=== PATIENT | male | born 1960 | race Caucasian/White ===

== ENCOUNTER 2017-08-24 10:50 | Inpatient (IN) | payer SELFPAY ==
[2017-08-24] VITALS (15 sets, daily range): BP systolic 97–120; BP diastolic 56–78
[~2017-08-24] VITALS: Ht 177.8 cm; Wt 68.7 kg
[~2017-08-24 10:50] MED LIST: ALPR2TAB2; CLON1TAB3; CLON1TAB3 PO; CLON2TAB16; DULO60CA6; LORA2TAB; LOVA10TA; POLI10TA; QUET50TA PO
--- OUTSIDE RECORDS SUMMARY | 2017-08-24 10:56 | XMS REPORT ---
Author Author RONAK FLETCHER Organization [facility] Address [address] [place] [address] Care Team Providers Care Dice Manager Name Role Phone RONAK FLETCHER Unavailable PROBLEMS Type Condition ICD9-CM Code [id number] Code Onset Dates Condition Status SNOMED Code Problem Severe episode of recurrent major depressive disorder, without psychotic features F33.2 Active 16634580 Problem Anxiety F41.9 Active 93623517 Problem Moderate recurrent major depression F33.1 Active 984291748 Problem Substance abuse F19.10 Active 70172240 Problem Substance addiction F19.20 Active 473016189 Problem Opioid type dependence, unspecified F11.20 Active 30105756 Problem Sedative, hypnotic or anxiolytic dependence F13.20 Active 119990178 ALLERGIES No Known Allergies SOCIAL HISTORY Never Assessed PLAN OF CARE Activity Details Follow Up we will call Reason: VITAL SIGNS Height 71.0 in 2017-02-04 Weight 153.9 lbs 2017-02-04 Temperature 97.9 degrees Fahrenheit 2017-02-04 Heart Rate 92 bpm 2017-02-04 Respiratory Rate 18 2017-02-04 BMI 21.46 kg/m2 2017-02-04 Blood pressure systolic 116 mmHg 2017-02-04 Blood pressure diastolic 74 mmHg 2017-02-04 MEDICATIONS Medication Instructions Dosage Frequency Start Date End Date Duration Status Remeron 15 mg Orally Once a day 1 tablet at bedtime 24h January, 30 day(s) Active RESULTS No Results PROCEDURES No Known procedures IMMUNIZATIONS No Known Immunizations MEDICAL (GENERAL) HISTORY Type Description Date Medical History Alcoholism Medical History Opioid Dependence Medical History Benzo Dependence Medical History Anxiety Medical History Depression Surgical History Tonsilectomy Hospitalization History Rehab for Alcoholism [facility] [place] 2008 Hospitalization History Rehab for Alcoholism [facility] 1988 Hospitalization History [facility] 07/2016
--- OUTSIDE RECORDS SUMMARY | 2017-08-24 10:56 | XMS REPORT ---
Author Author LILIA Lares Organization [facility] Address [address] [place] [address] Care Team Providers Care Athletic Coach Name Role Phone LILIA Lares Unavailable PROBLEMS Type Condition ICD9-CM Code [id number] Code Onset Dates Condition Status SNOMED Code Problem Severe episode of recurrent major depressive disorder, without psychotic features F33.2 Active 10169051 Problem Anxiety F41.9 Active 95194415 Problem Moderate recurrent major depression F33.1 Active 695375710 Problem Substance abuse F19.10 Active 43214658 Problem Substance addiction F19.20 Active 167117061 Problem Opioid type dependence, unspecified F11.20 Active 58617740 Problem Sedative, hypnotic or anxiolytic dependence F13.20 Active 521724821 ALLERGIES No Information SOCIAL HISTORY Never Assessed PLAN OF CARE VITAL SIGNS MEDICATIONS Unknown Medications RESULTS No Results PROCEDURES No Known procedures IMMUNIZATIONS No Known Immunizations MEDICAL (GENERAL) HISTORY Type Description Date Medical History Alcoholism Medical History Opioid Dependence Medical History Benzo Dependence Medical History Anxiety Medical History Depression Surgical History Tonsilectomy Hospital[facility] [place] [facility] Hospitalization History Rehab for Alcoholism [facility] 1988 Hospitalization History [facility] 07/2016
--- OUTSIDE RECORDS SUMMARY | 2017-08-24 10:56 | XMS REPORT ---
Author Author ESTEFANIA AMES Organization [facility] Address [address] [place] [address] Care Team Providers Care Melt Down Furnace Operator Name Role Phone ESTEFANIA AMES Unavailable PROBLEMS Type Condition ICD9-CM Code [id number] Code Onset Dates Condition Status SNOMED Code Problem Severe episode of recurrent major depressive disorder, without psychotic features F33.2 Active 48169103 Problem Anxiety F41.9 Active 86249817 Problem Moderate recurrent major depression F33.1 Active 335323094 Problem Substance abuse F19.10 Active 24420772 Problem Substance addiction F19.20 Active 761138552 Problem Opioid type dependence, unspecified F11.20 Active 86465688 Problem Sedative, hypnotic or anxiolytic dependence F13.20 Active [id number] ALLERGIES No Information SOCIAL HISTORY Never Assessed PLAN OF CARE Activity Details Follow Up 3 Weeks Reason:Depression, substance abuse VITAL SIGNS MEDICATIONS Unknown Medications RESULTS No Results PROCEDURES Procedure Date Ordered Result Body Site Psych diagnostic evaluation, new patient January 21, 2017 IMMUNIZATIONS No Known Immunizations MEDICAL (GENERAL) HISTORY Type Description Date Medical History Alcoholism Medical History Opioid Dependence Medical History Benzo Dependence Medical History Anxiety Medical History Depression Surgical History Tonsilectomy Hospitalization History Rehab for Alcoholism [facility] 2008 Hospitalization History Rehab for Alcoholism [facility] 1988 Hospitalization History [facility] 07/2016
--- OUTSIDE RECORDS SUMMARY | 2017-08-24 10:56 | XMS REPORT ---
Author Author CarmelitaJULIANA RUVALCABA Organization [facility] Address [address] [place] [address] Care Team Providers Care Production Analyst Name Role Phone JULIANA Duong Unavailable PROBLEMS Type Condition ICD9-CM Code [id number] Code Onset Dates Condition Status SNOMED Code Problem Severe episode of recurrent major depressive disorder, without psychotic features F33.2 Active 14552139 Problem Anxiety F41.9 Active 79214523 Problem Moderate recurrent major depression F33.1 Active 365279998 Problem Substance abuse F19.10 Active 76313825 Problem Substance addiction F19.20 Active 094564854 Problem Opioid type dependence, unspecified F11.20 Active 15777331 Problem Sedative, hypnotic or anxiolytic dependence F13.20 Active 079177950 ALLERGIES No Known Allergies SOCIAL HISTORY Never Assessed PLAN OF CARE Activity Details Follow Up Client declined f/u. Clinic available if changes mind. Reason: VITAL SIGNS Height 71.0 in 2017-01-30 Weight 154.0 lbs 2017-01-30 Heart Rate 88 bpm 2017-01-30 Respiratory Rate 18 2017-01-30 BMI 21.48 kg/m2 2017-01-30 Blood pressure systolic 95 mmHg 2017-01-30 Blood pressure diastolic 76 mmHg 2017-01-30 MEDICATIONS Unknown Medications RESULTS No Results PROCEDURES No Known procedures IMMUNIZATIONS No Known Immunizations MEDICAL (GENERAL) HISTORY Type Description Date Medical History Alcoholism Medical History Opioid Dependence Medical History Benzo Dependence Medical History Anxiety Medical History Depression Surgical History Tonsilectomy Hospitalization History Rehab for Alcoholism [facility] 2008 Hospitalization History Rehab for Alcoholism [facility] 1988 Hospitalization History [facility] 07/2016
--- OUTSIDE RECORDS SUMMARY | 2017-08-24 10:56 | XMS REPORT ---
Author Author ERIN CHRISTENSEN Organization [facility] Address [address] [place] [address] Care Team Providers Care Recreational Sports Director Name Role Phone ERIN CHRISTENSEN Unavailable PROBLEMS Type Condition ICD9-CM Code VFP54-IL Code Onset Dates Condition Status SNOMED Code Problem Severe episode of recurrent major depressive disorder, without psychotic features F33.2 Active 98576106 Problem Anxiety F41.9 Active 44625812 Problem Moderate recurrent major depression F33.1 Active 919949529 Problem Substance abuse F19.10 Active 36439818 Problem Substance addiction F19.20 Active 184209132 Problem Opioid type dependence, unspecified F11.20 Active 09039210 Problem Sedative, hypnotic or anxiolytic dependence F13.20 Active 807757597 ALLERGIES No Information SOCIAL HISTORY Never Assessed PLAN OF CARE VITAL SIGNS MEDICATIONS Unknown Medications RESULTS No Results PROCEDURES Procedure Date Ordered Result Body Site Alcohol and/or drug services January 23, 2017 IMMUNIZATIONS No Known Immunizations MEDICAL (GENERAL) HISTORY Type Description Date Medical History Alcoholism Medical History Opioid Dependence Medical History Benzo Dependence Medical History Anxiety Medical History Depression Surgical History Tonsilectomy Hospitalization History Rehab for Alcoholism [facility] 2008 Hospitalization History Rehab for Alcoholism [facility] 1988 Hospitalization History [facility] 07/2016
--- OUTSIDE RECORDS SUMMARY | 2017-08-24 10:56 | XMS REPORT ---
Author Author ESTEFANIA AMES Organization [facility] Address [address] [place] [address] Care Team Providers Care Car Greaser Name Role Phone ESTEFANIA AMES Unavailable PROBLEMS Type Condition ICD9-CM Code FDV16-NO Code Onset Dates Condition Status SNOMED Code Problem Severe episode of recurrent major depressive disorder, without psychotic features F33.2 Active 59725080 Problem Anxiety F41.9 Active 13475205 Problem Moderate recurrent major depression F33.1 Active 479954505 Problem Substance abuse F19.10 Active 77254762 Problem Substance addiction F19.20 Active 417483742 Problem Opioid type dependence, unspecified F11.20 Active 09427643 Problem Sedative, hypnotic or anxiolytic dependence F13.20 Active 539744635 ALLERGIES No Information SOCIAL HISTORY Never Assessed PLAN OF CARE Activity Details Follow Up 3 Weeks Reason:Depression, substance addiction VITAL SIGNS MEDICATIONS Unknown Medications RESULTS No Results PROCEDURES Procedure Date Ordered Result Body Site Psychotherapy, patient &/family, 30 minutes, established patient February 06, 2017 IMMUNIZATIONS No Known Immunizations MEDICAL (GENERAL) HISTORY Type Description Date Medical History Alcoholism Medical History Opioid Dependence Medical History Benzo Dependence Medical History Anxiety Medical History Depression Surgical History Tonsilectomy Hospitalization History Rehab for Alcoholism [facility] 2008 Hospitalization History Rehab for Alcoholism [facility] 1988 Hospitalization History [facility] 07/2016
--- OUTSIDE RECORDS SUMMARY | 2017-08-24 10:56 | XMS REPORT | Continuity of Care Document ---
Author Author [facility] Organization [facility] Address Unknown Phone Unavailable Allergies Medications Problems Procedures Results Encounters ACCT No. Visit Date/Time Discharge Status Pt. Type Provider Facility Loc./Unit Complaint [id number] 05/21/2013 04:05:00 2012 11:00:00 DIS Inpatient [id number] 05/27/2017 07:29:00 2016 11:36:00 DIS Emergency Dharmesh SMITH, [facility] W.EDS
--- OUTSIDE RECORDS SUMMARY | 2017-08-24 10:56 | XMS REPORT ---
Author Author RAH SANTAMARIA [facility] Address [address] [place] [address] Care Team Providers Care Intervention Analyst Name Role Phone RAH SANTAMARIA Unavailable PROBLEMS Type Condition ICD9-CM Code [id number] Code Onset Dates Condition Status SNOMED Code Problem Severe episode of recurrent major depressive disorder, without psychotic features F33.2 Active 93805973 Problem Anxiety F41.9 Active 49113966 Problem Moderate recurrent major depression F33.1 Active 185543847 Problem Substance abuse F19.10 Active 88195507 Problem Substance addiction F19.20 Active 352937357 Problem Opioid type dependence, unspecified F11.20 Active 43079848 Problem Sedative, hypnotic or anxiolytic dependence F13.20 Active 446258526 ALLERGIES No Information SOCIAL HISTORY Never Assessed PLAN OF CARE VITAL SIGNS MEDICATIONS Unknown Medications RESULTS No Results PROCEDURES No Known procedures IMMUNIZATIONS No Known Immunizations MEDICAL (GENERAL) HISTORY Type Description Date Medical History Alcoholism Medical History Opioid Dependence Medical History Benzo Dependence Medical History Anxiety Medical History Depression Surgical History Tonsilectomy Hospitalization History Rehab for Alcoholism [facility] [place] 2008 Hospitalization History Rehab for Alcoholism [facility] 1988 Hospitalization History [facility] 07/2016
--- OUTSIDE RECORDS SUMMARY | 2017-08-24 10:56 | XMS REPORT ---
Author Author ERIN CHRISTENSEN Organization [facility] Address [address] [place] [address] Care Team Providers Care Cooling Room Attendant Name Role Phone ERIN CHRISTENSEN Unavailable PROBLEMS Type Condition ICD9-CM Code QSE47-OC Code Onset Dates Condition Status SNOMED Code Problem Severe episode of recurrent major depressive disorder, without psychotic features F33.2 Active 74009518 Problem Anxiety F41.9 Active 05065537 Problem Moderate recurrent major depression F33.1 Active 368022786 Problem Substance abuse F19.10 Active 14582455 Problem Substance addiction F19.20 Active 437149301 Problem Opioid type dependence, unspecified F11.20 Active 18280134 Problem Sedative, hypnotic or anxiolytic dependence F13.20 Active 639833575 ALLERGIES No Information SOCIAL HISTORY Never Assessed PLAN OF CARE Activity Details Follow Up 1 Week Reason: VITAL SIGNS MEDICATIONS Unknown Medications RESULTS No Results PROCEDURES Procedure Date Ordered Result Body Site ALCOHOL AND/OR DRUG ASSESSMENT January 23, 2017 IMMUNIZATIONS No Known Immunizations MEDICAL (GENERAL) HISTORY Type Description Date Medical History Alcoholism Medical History Opioid Dependence Medical History Benzo Dependence Medical History Anxiety Medical History Depression Surgical History Tonsilectomy Hospitalization History Rehab for Alcoholism [facility] 2008 Hospitalization History Rehab for Alcoholism [facility] 1988 Hospitalization History [facility] 07/2016
[2017-08-24 11:22] LABS: BASOPHILS # (AUTO) 0.3 10^3/uL (0.0-0.1); BASOPHILS % (AUTO) 2 % (0-10); EOSINOPHILS # (AUTO) 0.3 10^3/uL (0.0-0.3); EOSINOPHILS % (AUTO) 2 % (0-10); LYMPHOCYTES # (AUTO) 3.1 X 10^3 (1.0-4.0); LYMPHOCYTES % (AUTO) 27 % (12-44); MEAN CORPUSCULAR HEMOGLOBIN 31 PG (25-34); MEAN CORPUSCULAR HGB CONC 36 G/DL (32-36); MEAN CORPUSCULAR VOLUME 88 FL (80-99); MEAN PLATELET VOLUME 9.1 FL (7.4-10.4); MONOCYTES % (AUTO) 9 % (0-12); NEUTROPHILS # (AUTO) 7.1 X 10^3 (1.8-7.8); NEUTROPHILS % (AUTO) 60 % (42-75); PLATELET COUNT 391 10^3/uL (130-400); RED BLOOD COUNT 4.77 10^6/uL (4.35-5.85); RED CELL DISTRIBUTION WIDTH 13.7 % (10.0-14.5); WHITE BLOOD COUNT 11.8 10^3/uL (4.3-11.0)
[2017-08-24 11:40] LABS: ALANINE AMINOTRANSFERASE 9 U/L (0-55); ALCOHOL 76 MG/DL (<10); ANION GAP 16 MMOL/L (5-14); ASPARTATE AMINO TRANSFERASE 16 U/L (5-34); BILIRUBIN,TOTAL 0.2 MG/DL (0.1-1.0); BLOOD UREA NITROGEN 5 MG/DL (7-18); BUN/CREATININE RATIO 8; CALCIUM 8.9 MG/DL (8.5-10.1); CARBON DIOXIDE 18 MMOL/L (21-32); CHLORIDE 105 MMOL/L (98-107); CREATININE SERUM 0.66 MG/DL (0.60-1.30); GFR ESTIMATED > 60; GLUCOSE 85 MG/DL (70-105); POTASSIUM 3.7 MMOL/L (3.6-5.0); SODIUM 139 MMOL/L (135-145)
[2017-08-24] MEDS ORDERED: LORazepam INJ 2 MG/ML (ATIVAN) VIAL IVP ONE (12:00)
[2017-08-24] MEDS ORDERED: LACTATED RINGERS 1,000 ML IV ONE (12:11)
--- NOTE | 2017-08-24 12:54 | ED Psychosocial ---
General Chief Complaint: Psych/Social Disorder Stated Complaint: ALCOHOLIC/POSS SUICIDAL Nursing Triage Note: AMB TO ROOM REPORTS WANTS HELP WITH DETOX AND IS SUICDAL. WAS IN REHAB IN JUN. ONSET DRINIKING AGAIN 1 WEEK AGO. AND ALSO SUCIDAL AND HAS THOUGHT ABOUT HARMING SELF. BY HANGING. HAS GAUGE BANDAGE ON L AC ASKED WHAT THAT WAS FROM. REPORTS HE WAS IN [facility] LEFT AMA FROM THERE. IS SUPPOSE TO TAKE ANTIDEPRESSANT ,BUT HAS NOT TAKEN FOR FOR 1 MONTH. Source: patient Exam Limitations: no limitations History of Present Illness Time seen by provider: 11:04 Initial Comments This 56-year-old gentleman presents to the emergency room with a request to help him with detox and suicidal ideation. He binge drinks and has been having difficulty since his daughter recently. He has been drinking heavily for about one week and drinks about 30 beers per day. He has had alcohol within the last 24 hours but states he is already starting to withdraw. He tried to quit drinking yesterday but states that withdrawal was too severe to tolerate. He is agitated and has auditory hallucinations. He states the voices are telling him he needs to . He is considering hanging himself. He is afraid he will either commit suicide or kill himself with alcohol consumption. Patient was also seen earlier this morning at [facility] but was dismissed. He does not remember much about that visit. History is obtained from notes obtained from [facility] and from patient interview. Apparently, according to the [facility] notes, he denied suicidal ideation at that visit. Patient uses alcohol, Xanax, and opioids. Allergies and Home Medications Allergies Coded Allergies: NKANo Known Allergies (Unverified Allergy, Mild, 03/28/09) No Known Drug Allergies (Unverified , 03/14/09) Home Medications Quetiapine Fumarate 50 Mg Tablet, 100 MG PO HS, (Reported) Constitutional: see HPI EENTM: no symptoms reported Respiratory: no symptoms reported Cardiovascular: no symptoms reported Gastrointestinal: no symptoms reported Genitourinary: no symptoms reported Musculoskeletal: no symptoms reported Skin: no symptoms reported Psychiatric/Neurological: See HPI Past Ywgwuro-Mgfovq-Vbnyoa Hx Patient Social History Alcohol Use: Regular Use Alcohol Beverage of Choice: Beer Recreational Drug Use: Yes (ALCOHOL) Smoking Status: Current Everyday Smoker Recent Foreign Travel: No Contact w/Someone Who Travel: No Recent Infectious Disease Expo: No Recent Hopitalizations: Yes Surgeries History of Surgeries: Yes Respiratory History of Respiratory Disorde: No Cardiovascular History of Cardiac Disorders: No Neurological History of Neurological Disord: No Reproductive System Hx Reproductive Disorders: No Genitourinary History of Genitourinary Disor: No Gastrointestinal History of Gastrointestinal Di: No Musculoskeletal History of Musculoskeletal Dis: No Endocrine History of Endocrine Disorders: No HEENT History of HEENT Disorders: Yes (calcified left parotid gland obstruction) Cancer History of Cancer: No Psychosocial History of Psychiatric Problem: Yes (PSYCH ADMITS IN PAST, alcohol and prescription drug abuse) Behavioral Health Disorders: Depression Suicide Risk Notes: GATE OVER CABINET PLACED DOWN PATIENT CLOTHES REMOVED AND PLACE IN GOWN. CLOTHES PLACED IN BELONGING BAG AT DESK. Integumentary History of Skin or Integumenta: No Blood Transfusions History of Blood Disorders: No Physical Exam Vital Signs Vital Sign - Last 12Hours 08/24/17 11:07 Temp 97.3 Pulse 110 Resp 18 B/P (MAP) 113/78 (90) Pulse Ox 95 O2 Delivery Room Air Capillary Refill : Less Than 3 Seconds General Appearance: WD/WN, no apparent distress HEENT: PERRL/EOMI, normal ENT inspection, pharynx normal Neck: normal inspection Respiratory: lungs clear, normal breath sounds, no respiratory distress, no accessory muscle use Cardiovascular: regular rate, rhythm, no edema, no murmur Gastrointestinal: normal bowel sounds, non tender, soft Extremities: normal inspection, no pedal edema Neurologic/Psychiatric: chili maker II-XII nml as tested, no motor/sensory deficits, alert, oriented x 3, other (depressed, tearful) Appearance/Memory: disheveled, impaired recent memory Behavior/Eye Contact: cooperative, avoids eye contact Thoughts/Hallucinations: auditory hallucinations, other (suicidal ideation, considering hanging self) Skin: normal color, warm/dry Progress/Results/Core Measures Results/Orders Lab Results Laboratory Tests Test 08/24/17 11:10 08/24/17 11:20 Range/Units White Blood Count 11.8 H 4.3-11.0 10^3/uL Red Blood Count 4.77 4.35-5.85 10^6/uL Hemoglobin 14.9 13.3-17.7 G/DL Hematocrit 42 40-54 % Mean Corpuscular Volume 88 80-99 FL Mean Corpuscular Hemoglobin 31 25-34 PG Mean Corpuscular Hemoglobin Concent 36 32-36 G/DL Red Cell Distribution Width 13.7 10.0-14.5 % Platelet Count 391 130-400 10^3/uL Mean Platelet Volume 9.1 7.4-10.4 FL Neutrophils (%) (Auto) 60 42-75 % Lymphocytes (%) (Auto) 27 12-44 % Monocytes (%) (Auto) 9 0-12 % Eosinophils (%) (Auto) 2 0-10 % Basophils (%) (Auto) 2 0-10 % Neutrophils # (Auto) 7.1 1.8-7.8 X 10^3 Lymphocytes # (Auto) 3.1 1.0-4.0 X 10^3 Monocytes # (Auto) 1.0 0.0-1.0 X 10^3 Eosinophils # (Auto) 0.3 0.0-0.3 10^3/uL Basophils # (Auto) 0.3 H 0.0-0.1 10^3/uL Sodium Level 139 135-145 MMOL/L Potassium Level 3.7 3.6-5.0 MMOL/L Chloride Level 105 98-107 MMOL/L Carbon Dioxide Level 18 L 21-32 MMOL/L Anion Gap 16 H 5-14 MMOL/L Blood Urea Nitrogen 5 L 7-18 MG/DL Creatinine 0.66 0.60-1.30 MG/DL Estimat Glomerular Filtration Rate > 60 BUN/Creatinine Ratio 8 Glucose Level 85 70-105 MG/DL Calcium Level 8.9 8.5-10.1 MG/DL Total Bilirubin 0.2 0.1-1.0 MG/DL Aspartate Amino Transf (AST/SGOT) 16 5-34 U/L Alanine Aminotransferase (ALT/SGPT) 9 0-55 U/L Alkaline Phosphatase 68 40-136 U/L Total Protein 7.0 6.4-8.2 GM/DL Albumin 4.0 3.2-4.5 GM/DL TSH [facility] Testing 0.42 0.35-4.94 UIU/ML Serum Alcohol 76 H <10 MG/DL Urine Opiates Screen POSITIVE H NEGATIVE Urine Oxycodone Screen NEGATIVE NEGATIVE Urine Methadone Screen NEGATIVE NEGATIVE Urine Propoxyphene Screen NEGATIVE NEGATIVE Urine Barbiturates Screen NEGATIVE NEGATIVE Ur Tricyclic Antidepressants Screen NEGATIVE NEGATIVE Urine Phencyclidine Screen NEGATIVE NEGATIVE Urine Amphetamines Screen NEGATIVE NEGATIVE Urine Methamphetamines Screen NEGATIVE NEGATIVE Urine Benzodiazepines Screen NEGATIVE NEGATIVE Urine Cocaine Screen NEGATIVE NEGATIVE Urine Cannabinoids Screen NEGATIVE NEGATIVE My Orders Orders - DES SUNSHINE MD Alcohol (08/24/17 11:04) Cbc With Automated Diff (08/24/17 11:04) Comprehensive Metabolic Panel (08/24/17 11:04) Drug Screen Stat (Urine) (08/24/17 11:04) Thyroid Analyzer (08/24/17 11:04) Lorazepam Injection (Ativan Injection) (08/24/17 12:00) Saline Lock/Iv-Start (08/24/17 11:58) Lactated Ringers (Lr 1000 Ml Iv Solution (08/24/17 12:11) General/Regular (08/24/17 Dinner) Medications Given in ED Current Medications Medications Dose Ordered Sig/Agnieszka Route Start Time Stop Time Status Last Admin Dose Admin Lactated Ringer's 1,000 ml @ 0 mls/hr Q0M ONCE IV 08/24/17 12:11 08/24/17 12:12 DC 08/24/17 12:31 1,000 MLS/HR Lorazepam 1 mg ONCE ONCE IVP 08/24/17 12:00 08/24/17 12:01 DC 08/24/17 12:09 1 MG Vital Signs/I&O Vital Sign - Last 12Hours 08/24/17 11:07 Temp 97.3 Pulse 110 Resp 18 B/P (MAP) 113/78 (90) Pulse Ox 95 O2 Delivery Room Air Blood Pressure Mean: 90 Progress Note : Progress Note Labs were evaluated. Patient received a liter of LR and Ativan 1 mg IV for treatment of his symptoms. Departure Communication (Admissions) Time/Spoke to Admitting Phy: 12:55 Communication Case was discussed with Dr. Capone who is agreeable to admission for treatment of alcohol withdrawal in preparation for inpatient psychiatric admission. She will place the admission orders. Impression Impression: Primary Impression: Alcohol withdrawal Qualified Codes: F10.231 - Alcohol dependence with withdrawal delirium Additional Impressions: Suicidal ideation Polysubstance abuse Disposition: ADMITTED INPATIENT Condition: Improved Admissions Decision to Admit Reason: Admit from ER (General) Decision to Admit/Date: Aug 24, 2017 Time/Decision to Admit Time: 11:15 Departure-Patient Inst. Referrals: NO,LOCAL PHYSICIAN (PCP/Family) Primary Care Physician DES SUNSHINE MD Aug 24, 2017 12:54
[2017-08-24] MEDS ORDERED: 1/2 NS IV SOLUTION 1,000 ML IV PRN (14:03)
[2017-08-24] MEDS ORDERED: SENNA W/DOCUSATE (SENOKOT S) TABLET PO PRN (14:15)
[2017-08-24] MEDS ORDERED: ONDANSETRON 4 MG/2 ML (SDV) Z0FRAN IV PRN (14:15)
[2017-08-24] MEDS ORDERED: LORazepam INJ 2 MG/ML (ATIVAN) VIAL IM/IV PRN (14:15)
[2017-08-24] MEDS ORDERED: ANTACID SUSP 30 ML UDC (MYLANTA) PO PRN (14:15)
[2017-08-24] MEDS ORDERED: D5 1/2 NS 1000 ML IV SOLUTION 1,000 ML IV PRN (14:15)
[2017-08-24] MEDS ORDERED: ONDANSETRON 4 MG (ZOFRAN) ORAL DISSOLVE TAB SL PRN (14:15)
--- NOTE | 2017-08-24 14:21 | History & Physicial (CHS) ---
HPI History of Present Illness: Pt presented to ED earlier today with reports of desire to detox from alcohol and suicidal ideation. Pt's plan is to hang himself or to drink himself to . Pt was seen earlier in the ED in [place], but apparently did not disclose his suicidal ideations to them. He reports that he was previously in detox program in June. He has had multiple psychiatric admissions for alcohol and opiate abuse; pt also admits to Xanax abuse when he can get it. He reports that his daughter recently and since that time he has been unable to control his binge drinking and has been consuming up to 30 beers per day. He reports that he did try to quit drinking yesterday, but the side effects were too much, and that is what brought him to seek out treatment at the emergency department today. He reports that he is feeling very agitated and having auditory hallucinations. Has had this before when he has detoxed from alcohol. Source: patient, RN/MD, old records Exam Limitations: intoxication Date seen by provider: Aug 24, 2017 Time Seen by Provider: 15:46 Attending Physician Mary Rodas DO PCP No,Local Physician Consult Date of Admission Aug 24, 2017 at 13:09 Home Medications Home Medications Reviewed patient Home Medication Reconciliation Form Allergies Coded Allergies: NKANo Known Allergies (Unverified Allergy, Mild, 03/28/09) No Known Drug Allergies (Unverified , 03/14/09) [id number] Hx Patient Social History Marrital Status: cohabiting Living Status: has been living with girlfriend and girlfriend's son, who is meth addict Employed/Student: unemployed Alcohol Use: Regular Use Recreational Drug Use: Yes (ALCOHOL, opiates, Xanax) Smoking Status: Current Everyday Smoker 2nd Hand Smoke Exposure: Yes Recent Foreign Travel: No Contact w/other who traveled: No Recent Hopitalizations: Yes Recent Infectious Disease Expo: No Immunizations Up To Date Tetanus Booster (TDap): Unknown Past Medical History Alcohol Abuse Polysubstance Abuse - Opiates, Xanax Depression Suicidal Ideation Tobacco Abuse Family Medical History Significant Family History: Heart Disease, Cancer, Psychiatric Problems Review of Systems (CHC) Constitutional: diaphoresis, malaise EENTM: other (auditory hallucinations) Respiratory: cough, No hemoptysis Cardiovascular: No chest pain, No Hx of Intervention Gastrointestinal: abdominal pain, loss of appetite, nausea Genitourinary: no symptoms reported Musculoskeletal: muscle pain, muscle cramps Skin: no symptoms reported Psychiatric/Neurological: See HPI, Anxiety, Depressed, Emotional Problems, Tremors Reviewed Test Results Reviewed Test Results Lab Laboratory Tests Test 08/24/17 11:10 08/24/17 11:20 Range/Units White Blood Count 11.8 H 4.3-11.0 10^3/uL Red Blood Count 4.77 4.35-5.85 10^6/uL Hemoglobin 14.9 13.3-17.7 G/DL Hematocrit 42 40-54 % Mean Corpuscular Volume 88 80-99 FL Mean Corpuscular Hemoglobin 31 25-34 PG Mean Corpuscular Hemoglobin Concent 36 32-36 G/DL Red Cell Distribution Width 13.7 10.0-14.5 % Platelet Count 391 130-400 10^3/uL Mean Platelet Volume 9.1 7.4-10.4 FL Neutrophils (%) (Auto) 60 42-75 % Lymphocytes (%) (Auto) 27 12-44 % Monocytes (%) (Auto) 9 0-12 % Eosinophils (%) (Auto) 2 0-10 % Basophils (%) (Auto) 2 0-10 % Neutrophils # (Auto) 7.1 1.8-7.8 X 10^3 Lymphocytes # (Auto) 3.1 1.0-4.0 X 10^3 Monocytes # (Auto) 1.0 0.0-1.0 X 10^3 Eosinophils # (Auto) 0.3 0.0-0.3 10^3/uL Basophils # (Auto) 0.3 H 0.0-0.1 10^3/uL Sodium Level 139 135-145 MMOL/L Potassium Level 3.7 3.6-5.0 MMOL/L Chloride Level 105 98-107 MMOL/L Carbon Dioxide Level 18 L 21-32 MMOL/L Anion Gap 16 H 5-14 MMOL/L Blood Urea Nitrogen 5 L 7-18 MG/DL Creatinine 0.66 0.60-1.30 MG/DL Estimat Glomerular Filtration Rate > 60 BUN/Creatinine Ratio 8 Glucose Level 85 70-105 MG/DL Calcium Level 8.9 8.5-10.1 MG/DL Total Bilirubin 0.2 0.1-1.0 MG/DL Aspartate Amino Transf (AST/SGOT) 16 5-34 U/L Alanine Aminotransferase (ALT/SGPT) 9 0-55 U/L Alkaline Phosphatase 68 40-136 U/L Total Protein 7.0 6.4-8.2 GM/DL Albumin 4.0 3.2-4.5 GM/DL TSH [place] Testing 0.42 0.35-4.94 UIU/ML Serum Alcohol 76 H <10 MG/DL Urine Opiates Screen POSITIVE H NEGATIVE Urine Oxycodone Screen NEGATIVE NEGATIVE Urine Methadone Screen NEGATIVE NEGATIVE Urine Propoxyphene Screen NEGATIVE NEGATIVE Urine Barbiturates Screen NEGATIVE NEGATIVE Ur Tricyclic Antidepressants Screen NEGATIVE NEGATIVE Urine Phencyclidine Screen NEGATIVE NEGATIVE Urine Amphetamines Screen NEGATIVE NEGATIVE Urine Methamphetamines Screen NEGATIVE NEGATIVE Urine Benzodiazepines Screen NEGATIVE NEGATIVE Urine Cocaine Screen NEGATIVE NEGATIVE Urine Cannabinoids Screen NEGATIVE NEGATIVE Physical Exam-(CHC) Physical Exam Vital Signs VS - Last 72 Hours, by Label 08/24/17 08/24/17 08/24/17 08/24/17 11:07 14:31 14:40 15:00 Temp 97.3 98.9 Pulse 110 95 Resp 18 18 B/P (MAP) 113/78 (90) 108/68 (81) Pulse Ox 95 98 87 O2 Delivery Room Air Room Air Room Air Nasal Cannula O2 Flow Rate 3.00 08/24/17 08/24/17 08/24/17 08/24/17 15:00 15:15 15:30 15:45 Pulse 118 105 108 100 Resp 13 18 16 15 B/P (MAP) 107/62 (77) 105/64 (78) 117/65 (82) 117/78 (91) Pulse Ox 93 96 98 O2 Delivery Nasal Cannula Nasal Cannula Nasal Cannula Nasal Cannula O2 Flow Rate 3.00 3.00 3.00 3.00 08/24/17 08/24/17 08/24/17 08/24/17 16:00 16:15 16:30 17:00 Temp 99.8 Pulse 92 85 108 90 Resp 15 17 20 B/P (MAP) 117/72 (87) 120/72 (88) 106/78 (87) 117/59 (78) Pulse Ox 97 97 97 97 O2 Delivery Nasal Cannula Nasal Cannula Nasal Cannula Nasal Cannula O2 Flow Rate 3.00 3.00 3.00 3.00 08/24/17 18:00 Pulse 84 Resp 22 B/P (MAP) 114/71 (85) Pulse Ox 96 O2 Delivery Nasal Cannula O2 Flow Rate 3.00 Capillary Refill : Less Than 3 Seconds General Appearance: WD/WN, no apparent distress Eyes: Bilateral Eye Normal Inspection HEENT: PERRL/EOMI, No photophobia Neck: non-tender, full range of motion, supple, normal inspection Respiratory: chest non-tender, no respiratory distress, no accessory muscle use , wheezing (diffuse) Cardiovascular: normal peripheral pulses, regular rate, rhythm, no edema, no gallop, no JVD, no murmur, tachycardia (sinus tach per telemetry) Peripheral Pulses: 2+ Dorsalis Pedis (R), 2+ Left Dors-Pedis (L), 2+ Radial Pulses (R), 2+ Radial Pulses (L) Gastrointestinal: normal bowel sounds, non tender, soft, no organomegaly, no pulsatile mass Back: normal inspection, no CVA tenderness, no vertebral tenderness Extremities: normal range of motion, non-tender, normal inspection, no pedal edema, no calf tenderness 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, no motor/sensory deficits, alert, oriented x 3, depressed affect Skin: normal color, warm/dry Assessment/Plan Assessment/Plan Admission Dx Alcohol Withdrawal Suicidal Ideation Polysubstance Abuse Tobacco Abuse Plan Alcohol Withdrawal -given large volume of binge drinking, will admit to ICU for detox -CIWA protocol -scheduled Baclofen 10 mg TID, scheduled Ativan PO Q4H -call if patient continues to have CIWA score >15 after scheduled medication and PRN ativan per CIWA protocol; if required will consider further sedation Suicidal Ideation -pt's current suicidal plan is hanging himself or drinking himself to -place in room close to desk and watch closely -if needed, will place 1:1 sitter in patient room to keep patient from self harm , although at this time patient has verbally agreed not to harm himself in hospital -will clear medically with plans for transfer to inpatient psychiatric facility after acute detox period Polysubstance Abuse -pt with history of opiate abuse and positive UDS for opiates; will hold any opiates in hospital if at all possible, as pt has no documented need for them at this time and opiate withdrawal, while uncomfortable, is not typically harmful; will treat symptoms PRN -pt with history of Xanax abuse although current UDS negative for benzos; given that he will be detoxing from alcohol and the large amount that he reports drinking per day, baclofen is likely not enough and he will require ativan for now; will wean off benzos as soon as appropriate and can continue detox with baclofen instead Tobacco Abuse -cessation encouraged -will offer nicotine patch in hospital FEN: Regular Diet DVT PPx: Lovenox 40 mg SQ daily and SCDs Dispo: The patient is actively withdrawing from alcohol and is also actively suicidal with a reported plan of hanging himself; he requires at least a two midnight stay in order to manage his withdrawal and monitor his behavior. Anticipate that he will be medically stable and able to transfer to a psychiatric facility in 48-72 hours. MARY RODAS DO Aug 24, 2017 14:21
[2017-08-24] MEDS: NICOTINE 21 MG (NICODERM) PATCH TD SCH (15:36)
[2017-08-24] MEDS: D5 1/2 NS W/KCL 20 MEQ/L 1,000 ML IV SCH ×2 (15:39→22:41)
[2017-08-24] MEDS: LORazepam 1 MG (ATIVAN) TAB PO SCH ×3 (15:41→22:07)
[2017-08-24] MEDS: ENOXAPARIN 40 MG/0.4 ML (LOVENOX) SYR SC SCH (15:41)
[2017-08-24] MEDS ORDERED: RT-ALBUTEROL SULF 2.5 MG/3 ML PRE-MIX VIAL IH PRN (18:30)
[2017-08-24] MEDS: MAGNESIUM OXIDE (MAG-OX)400 MG TAB PO SCH (21:12)
[2017-08-24] MEDS: BACLOFEN 10 MG (LIORESAL) TAB PO SCH (21:12)
[2017-08-24 21:29] LABS: BILIRUBIN,URINE NEGATIVE (NEGATIVE); KETONES,URINE NEGATIVE (NEGATIVE); LEUKOCYTE ESTERASE ,URINE NEGATIVE (NEGATIVE); NITRITE,URINE NEGATIVE (NEGATIVE); PH,URINE 6.5 (5-9); PROTEIN,URINE NEGATIVE (NEGATIVE); UROBILINOGEN,URINE NORMAL (NORMAL)
[2017-08-24 21:36] LABS: WBC,URINE RARE /HPF
[2017-08-24] MEDS ORDERED: ACETAMINOPHEN 500 MG TAB (TYLENOL) PO ONE (22:30)
[2017-08-25] VITALS (13 sets, daily range): BP systolic 93–125; BP diastolic 61–81
[2017-08-25] MEDS: LORazepam 1 MG (ATIVAN) TAB PO SCH ×3 (02:08→11:00)
[2017-08-25] MEDS: D5 1/2 NS W/KCL 20 MEQ/L 1,000 ML IV SCH ×4 (05:21→18:49)
[2017-08-25 05:23] LABS: BASOPHILS # (AUTO) 0.2 10^3/uL (0.0-0.1); BASOPHILS % (AUTO) 2 % (0-10); EOSINOPHILS # (AUTO) 0.5 10^3/uL (0.0-0.3); EOSINOPHILS % (AUTO) 5 % (0-10); LYMPHOCYTES # (AUTO) 3.2 X 10^3 (1.0-4.0); LYMPHOCYTES % (AUTO) 32 % (12-44); MEAN CORPUSCULAR HEMOGLOBIN 31 PG (25-34); MEAN CORPUSCULAR HGB CONC 35 G/DL (32-36); MEAN CORPUSCULAR VOLUME 89 FL (80-99); MEAN PLATELET VOLUME 9.2 FL (7.4-10.4); MONOCYTES % (AUTO) 10 % (0-12); NEUTROPHILS % (AUTO) 51 % (42-75); PLATELET COUNT 341 10^3/uL (130-400); RED BLOOD COUNT 4.48 10^6/uL (4.35-5.85); RED CELL DISTRIBUTION WIDTH 13.7 % (10.0-14.5); WHITE BLOOD COUNT 9.8 10^3/uL (4.3-11.0)
[2017-08-25 05:36] LABS: PROTHROMBIN TIME PATIENT 13.5 SEC (12.2-14.7)
[2017-08-25 05:45] LABS: ALANINE AMINOTRANSFERASE 13 U/L (0-55); ALBUMIN 3.3 GM/DL (3.2-4.5); ANION GAP 7 MMOL/L (5-14); ASPARTATE AMINO TRANSFERASE 17 U/L (5-34); BILIRUBIN,TOTAL 0.3 MG/DL (0.1-1.0); BLOOD UREA NITROGEN 7 MG/DL (7-18); BUN/CREATININE RATIO 10; CALCIUM 8.5 MG/DL (8.5-10.1); CARBON DIOXIDE 26 MMOL/L (21-32); CHLORIDE 105 MMOL/L (98-107); CREATININE SERUM 0.68 MG/DL (0.60-1.30); GFR ESTIMATED > 60; GLUCOSE 122 MG/DL (70-105); POTASSIUM 3.9 MMOL/L (3.6-5.0); SODIUM 138 MMOL/L (135-145); TOTAL PROTEIN 5.8 GM/DL (6.4-8.2)
[2017-08-25] MEDS: MULTIVIT W/MINERALS TAB (THERAGRAN M) PO SCH (06:16)
[2017-08-25] MEDS: THIAMINE 100 MG (VITAMIN B-1) TAB PO SCH (06:16)
[2017-08-25] MEDS ORDERED: CATHETER FLUSH 10 ML SYR IV PRN (07:00)
[2017-08-25] MEDS ORDERED: INFLUENZA TRIvalent 2017-2018 0.5 ML/45 MCG SYR IM ONE (07:00)
[2017-08-25] MEDS: FOLIC ACID 1 MG TAB PO SCH (08:34)
[2017-08-25] MEDS: NICOTINE 21 MG (NICODERM) PATCH TD SCH (08:34)
[2017-08-25] MEDS: LORazepam INJ 2 MG/ML (ATIVAN) VIAL IV PRN ×2 (08:34→12:49)
[2017-08-25] MEDS: MAGNESIUM OXIDE (MAG-OX)400 MG TAB PO SCH ×2 (08:34→20:50)
[2017-08-25] MEDS: BACLOFEN 10 MG (LIORESAL) TAB PO SCH ×3 (08:35→20:49)
[2017-08-25] MEDS: NICOTINE PATCH REMOVAL TP SCH (08:35)
--- NOTE | 2017-08-25 10:16 | Progress Note (SOAP) ---
Subjective Subjective/Events-last exam Afebrile, no acute events. He states he is feeling okay. He doesn't know what his plans are for after discharge, he might consider inpatient treatment facility. He does not feel that where he is staying currently is a good situation to return to because of other substance use around. Review of Systems Date Seen by Provider: Aug 25, 2017 Time Seen by Provider: 09:40 Objective Exam Last Set of Vital Signs Vital Signs Date Time Temp Pulse Resp B/P (MAP) Pulse Ox O2 Delivery O2 Flow Rate FiO2 08/25/17 08:00 73 28 123/79 (94) 99 Nasal Cannula 3.00 08/25/17 08:00 98.4 Capillary Refill : Less Than 3 Seconds I&O Intake and Output 08/25/17 00:00 Intake Total 2370 ml Output Total 575 ml Balance 1795 ml Intake Oral 370 ml IV Total 2000 ml Output Urine Total 575 ml General: Alert, No Acute Distress HEENT: Other (Mass in area of left parotid) Lungs: Clear to Auscultation, Normal Air Movement Heart: Regular Rate, No Murmurs Abdomen: Normal Bowel Sounds, Soft Neuro: Normal Speech Psych/Mental Status: Mental Status NL Results/Procedures Lab Laboratory Tests 08/24/17 11:10: White Blood Count 11.8H, Red Blood Count 4.77, Hemoglobin 14.9, Hematocrit 42, Mean Corpuscular Volume 88, Mean Corpuscular Hemoglobin 31, Mean Corpuscular Hemoglobin Concent 36, Red Cell Distribution Width 13.7, Platelet Count 391, Mean Platelet Volume 9.1, Neutrophils (%) (Auto) 60, Lymphocytes (%) (Auto) 27, Monocytes (%) (Auto) 9, Eosinophils (%) (Auto) 2, Basophils (%) (Auto) 2, Neutrophils # (Auto) 7.1, Lymphocytes # (Auto) 3.1, Monocytes # (Auto) 1.0, Eosinophils # (Auto) 0.3, Basophils # (Auto) 0.3H, Sodium Level 139, Potassium Level 3.7, Chloride Level 105, Carbon Dioxide Level 18L, Anion Gap 16H, Blood Urea Nitrogen 5L, Creatinine 0.66, Estimat Glomerular Filtration Rate > 60, BUN/ Creatinine Ratio 8, Glucose Level 85, Calcium Level 8.9, Total Bilirubin 0.2, Aspartate Amino Transf (AST/SGOT) 16, Alanine Aminotransferase (ALT/SGPT) 9, Alkaline Phosphatase 68, Total Protein 7.0, Albumin 4.0, TSH [place] Testing 0.42, Serum Alcohol 76H 08/24/17 11:20: Urine Opiates Screen POSITIVEH, Urine Oxycodone Screen NEGATIVE, Urine Methadone Screen NEGATIVE, Urine Propoxyphene Screen NEGATIVE, Urine Barbiturates Screen NEGATIVE, Ur Tricyclic Antidepressants Screen NEGATIVE, Urine Phencyclidine Screen NEGATIVE, Urine Amphetamines Screen NEGATIVE, Urine Methamphetamines Screen NEGATIVE, Urine Benzodiazepines Screen NEGATIVE, Urine Cocaine Screen NEGATIVE, Urine Cannabinoids Screen NEGATIVE 08/24/17 17:49: Glucometer 118H 08/24/17 21:15: Urine Color YELLOW, Urine Clarity CLEAR, Urine pH 6.5, Urine Specific [place] 1.015L, Urine Protein NEGATIVE, Urine Glucose (UA) NEGATIVE, Urine Ketones NEGATIVE, Urine Nitrite NEGATIVE, Urine Bilirubin NEGATIVE, Urine Urobilinogen NORMAL, Urine Leukocyte Esterase NEGATIVE, Urine RBC (Auto) 2+H, Urine RBC 2-5H , Urine WBC RARE, Urine Crystals NONE, Urine Bacteria NEGATIVE, Urine Casts NONE , Urine Mucus NEGATIVE, Urine Culture Indicated NO 08/24/17 23:42: Glucometer 91 08/25/17 04:55: White Blood Count 9.8, Red Blood Count 4.48, Hemoglobin 13.9, Hematocrit 40, Mean Corpuscular Volume 89, Mean Corpuscular Hemoglobin 31, Mean Corpuscular Hemoglobin Concent 35, Red Cell Distribution Width 13.7, Platelet Count 341, Mean Platelet Volume 9.2, Neutrophils (%) (Auto) 51, Lymphocytes (%) (Auto) 32, Monocytes (%) (Auto) 10, Eosinophils (%) (Auto) 5, Basophils (%) (Auto) 2, Neutrophils # (Auto) 5.0, Lymphocytes # (Auto) 3.2, Monocytes # (Auto) 1.0, Eosinophils # (Auto) 0.5H, Basophils # (Auto) 0.2H, Prothrombin Time 13.5, INR Comment 1.0, Activated Partial Thromboplast Time 30, Sodium Level 138, Potassium Level 3.9, Chloride Level 105, Carbon Dioxide Level 26, Anion Gap 7, Blood Urea Nitrogen 7, Creatinine 0.68, Estimat Glomerular Filtration Rate > 60 , BUN/Creatinine Ratio 10, Glucose Level 122H, Calcium Level 8.5, Total Bilirubin 0.3, Aspartate Amino Transf (AST/SGOT) 17, Alanine Aminotransferase ( ALT/SGPT) 13, Alkaline Phosphatase 56, Total Protein 5.8L, Albumin 3.3 Assessment/Plan Assessment/Plan Plan Alcohol Withdrawal -given large volume of binge drinking, will admit to ICU for detox -CIWA protocol -scheduled Baclofen 10 mg TID, scheduled Ativan PO Q4H -call if patient continues to have CIWA score >15 after scheduled medication and PRN ativan per CIWA protocol; if required will consider further sedation 08/25- patient did well overnight, will d/c scheduled ativan and continue CIWA protocol, transfer to floor Suicidal Ideation -pt's current suicidal plan is hanging himself or drinking himself to -place in room close to desk and watch closely -if needed, will place 1:1 sitter in patient room to keep patient from self harm , although at this time patient has verbally agreed not to harm himself in hospital -will clear medically with plans for transfer to inpatient psychiatric facility after acute detox period 08/25 suicidal ideations expressed this am are passive, anticipate SAVE line will clear, but will call when ready for d/c to confirm, will need to resume seeing Behavioral Health, reports last visit Oct and that he was previously on cymbalta and hydroxyzine which were beneficial, will likely resume when withdrawal addressed. Polysubstance Abuse -pt with history of opiate abuse and positive UDS for opiates; will hold any opiates in hospital if at all possible, as pt has no documented need for them at this time and opiate withdrawal, while uncomfortable, is not typically harmful; will treat symptoms PRN -pt with history of Xanax abuse although current UDS negative for benzos; given that he will be detoxing from alcohol and the large amount that he reports drinking per day, baclofen is likely not enough and he will require ativan for now; will wean off benzos as soon as appropriate and can continue detox with baclofen instead 08/25 doing well, not requiring additional medications, will consider inpatient rehab if not requiring inpatient psychiatric stay Tobacco Abuse -cessation encouraged -will offer nicotine patch in hospital FEN: Regular Diet DVT PPx: Lovenox 40 mg SQ daily and SCDs Clinical Quality Measures DVT/VTE Risk/Contraindication: Risk Factor Score Per Nursin RFS Level Per Nursing on Admit: 2=Moderate GRAYSON CASANOVA MD Aug 25, 2017 10:16
[2017-08-25] MEDS: LORazepam 1 MG (ATIVAN) TAB PO PRN ×5 (14:34→20:49)
[2017-08-25] MEDS: ENOXAPARIN 40 MG/0.4 ML (LOVENOX) SYR SC SCH (14:34)
[2017-08-26] MEDS: LORazepam 1 MG (ATIVAN) TAB PO PRN ×2 (01:29→20:01)
[2017-08-26] MEDS: D5 1/2 NS W/KCL 20 MEQ/L 1,000 ML IV SCH ×4 (01:30→22:15)
[2017-08-26 04:00] VITALS: BP 112/64
[2017-08-26] MEDS: THIAMINE 100 MG (VITAMIN B-1) TAB PO SCH (05:59)
[2017-08-26] MEDS: MULTIVIT W/MINERALS TAB (THERAGRAN M) PO SCH (05:59)
[2017-08-26 08:00] VITALS: BP 120/74
[2017-08-26 08:06] LABS: HIV AG AB SCREEN Non-Reactive (Non-Reactive)
[2017-08-26] MEDS: BACLOFEN 10 MG (LIORESAL) TAB PO SCH ×3 (08:23→20:01)
[2017-08-26] MEDS: MAGNESIUM OXIDE (MAG-OX)400 MG TAB PO SCH ×2 (08:23→20:01)
[2017-08-26] MEDS: FOLIC ACID 1 MG TAB PO SCH (08:23)
[2017-08-26] MEDS: NICOTINE 21 MG (NICODERM) PATCH TD SCH (08:24)
[2017-08-26] MEDS: LORazepam INJ 2 MG/ML (ATIVAN) VIAL IV PRN (08:24)
[2017-08-26] MEDS: NICOTINE PATCH REMOVAL TP SCH (08:38)
--- NOTE | 2017-08-26 10:54 | Progress Note (SOAP) ---
Subjective Subjective/Events-last exam Afebrile, no acute events. Required 6 mg PO ativan and 2 mg IV ativan last 24 hours. Review of Systems Date Seen by Provider: Aug 26, 2017 Time Seen by Provider: 10:30 Objective Exam Last Set of Vital Signs Vital Signs Date Time Temp Pulse Resp B/P (MAP) Pulse Ox O2 Delivery O2 Flow Rate FiO2 08/26/17 09:14 Room Air 08/26/17 08:00 98.2 74 18 120/74 (89) 93 08/26/17 08:00 3.00 Capillary Refill : Less Than 3 Seconds I&O Intake and Output 08/26/17 00:00 Intake Total 4245 ml Output Total 3030 ml Balance 1215 ml Intake Oral 2245 ml IV Total 2000 ml Output Urine Total 3030 ml # Voids 5 # Bowel Movements 1 General: Other (sleeping but awakes to questions and answers appropriately) Lungs: Clear to Auscultation, Normal Air Movement Heart: Regular Rate, No Murmurs Extremities: No Edema Results/Procedures Lab Laboratory Tests 08/25/17 11:56: Glucometer 122H 08/25/17 17:54: Glucometer 114H 08/26/17 01:25: Glucometer 112H 08/26/17 05:46: Glucometer 110 Assessment/Plan Assessment/Plan Plan Alcohol Withdrawal -given large volume of binge drinking, will admit to ICU for detox -CIWA protocol -scheduled Baclofen 10 mg TID, scheduled Ativan PO Q4H -call if patient continues to have CIWA score >15 after scheduled medication and PRN ativan per CIWA protocol; if required will consider further sedation 08/25- patient did well overnight, will d/c scheduled ativan and continue CIWA protocol, transfer to floor 08/26- stable but still requiring significant amount of benzodiazepine, continue withdrawal protocol Suicidal Ideation -pt's current suicidal plan is hanging himself or drinking himself to -place in room close to desk and watch closely -if needed, will place 1:1 sitter in patient room to keep patient from self harm , although at this time patient has verbally agreed not to harm himself in hospital -will clear medically with plans for transfer to inpatient psychiatric facility after acute detox period 08/25 suicidal ideations expressed this am are passive, anticipate SAVE line will clear, but will call when ready for d/c to confirm, will need to resume seeing Behavioral Health, reports last visit Jun and that he was previously on cymbalta and hydroxyzine which were beneficial, will likely resume when withdrawal addressed. Polysubstance Abuse -pt with history of opiate abuse and positive UDS for opiates; will hold any opiates in hospital if at all possible, as pt has no documented need for them at this time and opiate withdrawal, while uncomfortable, is not typically harmful; will treat symptoms PRN -pt with history of Xanax abuse although current UDS negative for benzos; given that he will be detoxing from alcohol and the large amount that he reports drinking per day, baclofen is likely not enough and he will require ativan for now; will wean off benzos as soon as appropriate and can continue detox with baclofen instead 08/25 doing well, not requiring additional medications, will consider inpatient rehab if not requiring inpatient psychiatric stay Tobacco Abuse -cessation encouraged -will offer nicotine patch in hospital FEN: Regular Diet DVT PPx: Lovenox 40 mg SQ daily and SCDs Clinical Quality Measures DVT/VTE Risk/Contraindication: Risk Factor Score Per Nursin RFS Level Per Nursing on Admit: 2=Moderate GRAYSON CASANOVA MD Aug 26, 2017 10:54 am
[2017-08-26 12:00] VITALS: BP 115/67
[2017-08-26] MEDS: ENOXAPARIN 40 MG/0.4 ML (LOVENOX) SYR SC SCH (13:31)
[2017-08-26] MEDS ORDERED: LORazepam 0.5 MG (ATIVAN) TABLET PO NR (14:30)
[2017-08-26 16:02] VITALS: BP 120/55
[2017-08-26 19:26] VITALS: BP 104/62
[2017-08-26 23:40] VITALS: BP 106/52
[2017-08-27] MEDS: LORazepam 1 MG (ATIVAN) TAB PO PRN ×2 (02:35→08:21)
[2017-08-27 03:03] VITALS: BP 118/71
[2017-08-27] MEDS: D5 1/2 NS W/KCL 20 MEQ/L 1,000 ML IV SCH (04:56)
[2017-08-27] MEDS: MULTIVIT W/MINERALS TAB (THERAGRAN M) PO SCH (06:43)
[2017-08-27] MEDS: THIAMINE 100 MG (VITAMIN B-1) TAB PO SCH (06:43)
[2017-08-27 08:01] VITALS: BP 119/60
[2017-08-27] MEDS: NICOTINE PATCH REMOVAL TP SCH (08:21)
[2017-08-27] MEDS: NICOTINE 21 MG (NICODERM) PATCH TD SCH (08:21)
[2017-08-27] MEDS: FOLIC ACID 1 MG TAB PO SCH (08:21)
[2017-08-27] MEDS: BACLOFEN 10 MG (LIORESAL) TAB PO SCH (08:21)
[2017-08-27] MEDS: MAGNESIUM OXIDE (MAG-OX)400 MG TAB PO SCH (08:21)
[2017-08-27] MEDS ORDERED: DULO30CA3 PO (10:18)
[2017-08-27] MEDS ORDERED: LORA-404 PO (10:18)
--- NOTE | 2017-08-27 10:23 | Discharge Summary ---
Diagnosis/Chief Complaint Date of Admission Aug 24, 2017 at 1:09 pm Date of Discharge Aug 27, 2017 Admission Diagnosis Admission Diagnosis Alcohol Withdrawal Suicidal Ideation Polysubstance Abuse Tobacco Abuse Discharge Diagnosis Alcohol Withdrawal -given large volume of binge drinking, will admit to ICU for detox -CIWA protocol -scheduled Baclofen 10 mg TID, scheduled Ativan PO Q4H -call if patient continues to have CIWA score >15 after scheduled medication and PRN ativan per CIWA protocol; if required will consider further sedation 08/25- patient did well overnight, will d/c scheduled ativan and continue CIWA protocol, transfer to floor 08/26- stable but still requiring significant amount of benzodiazepine, continue withdrawal protocol 08/27 decreasing lorazepam requirement, will not be able to go to inpatient treatment due to finances and placement ability, will meet with outpatient addiction treatment center at [facility] directly after discharge, will send with 0.5 mg of lorazepam for TID to get to appointment with Dr. Fletcher tomorrow to determine further taper. Hepatitis and HIV testing negative. Suicidal Ideation -pt's current suicidal plan is hanging himself or drinking himself to -place in room close to desk and watch closely -if needed, will place 1:1 sitter in patient room to keep patient from self harm , although at this time patient has verbally agreed not to harm himself in hospital -will clear medically with plans for transfer to inpatient psychiatric facility after acute detox period 08/25 suicidal ideations expressed this am are passive, anticipate SAVE line will clear, but will call when ready for d/c to confirm, will need to resume seeing Behavioral Health, reports last visit Jun and that he was previously on cymbalta and hydroxyzine which were beneficial, will likely resume when withdrawal addressed. 08/27 reports he is concerned he will hurt himself with drinking and does not actually want to harm himself. Resume cymbalta on d/c. Polysubstance Abuse -pt with history of opiate abuse and positive UDS for opiates; will hold any opiates in hospital if at all possible, as pt has no documented need for them at this time and opiate withdrawal, while uncomfortable, is not typically harmful; will treat symptoms PRN -pt with history of Xanax abuse although current UDS negative for benzos; given that he will be detoxing from alcohol and the large amount that he reports drinking per day, baclofen is likely not enough and he will require ativan for now; will wean off benzos as soon as appropriate and can continue detox with baclofen instead 08/25 doing well, not requiring additional medications, will consider inpatient rehab if not requiring inpatient psychiatric stay 08/27 see EtOH withdrawal plan Tobacco Abuse -cessation encouraged Chief Complaint/HPI Chief Complaint/HPI Pt presented to ED earlier today with reports of desire to detox from alcohol and suicidal ideation. Pt's plan is to hang himself or to drink himself to . Pt was seen earlier in the ED in [place], but apparently did not disclose his suicidal ideations to them. He reports that he was previously in detox program in June. He has had multiple psychiatric admissions for alcohol and opiate abuse; pt also admits to Xanax abuse when he can get it. He reports that his daughter recently and since that time he has been unable to control his binge drinking and has been consuming up to 30 beers per day. He reports that he did try to quit drinking yesterday, but the side effects were too much, and that is what brought him to seek out treatment at the emergency department today. He reports that he is feeling very agitated and having auditory hallucinations. Has had this before when he has detoxed from alcohol. Discharge Summary-Simple/Stand Consultations Discharge Physical Examination Allergies: Coded Allergies: NKANo Known Allergies (Unverified Allergy, Mild, 03/28/09) No Known Drug Allergies (Unverified , 03/14/09) Vitals & I&Os Vital Sign - Last 12Hours Date Time Temp Pulse Resp B/P (MAP) Pulse Ox O2 Delivery O2 Flow Rate FiO2 08/27/17 08:28 Room Air 08/27/17 08:01 98.1 89 16 119/60 (79) 92 08/26/17 20:00 3.00 Intake and Output 08/27/17 00:00 Intake Total 3090 ml Balance 3090 ml General Appearance: Alert, No Acute Distress Psych/Mental Status: Mental Status NL, Other (flat affect) Hospital Course See final discharge diagnosis. Labs Laboratory Tests Test 08/25/17 11:56 08/25/17 17:54 08/26/17 01:25 08/26/17 05:46 Range/Units Glucometer 122 H 114 H 112 H 110 70-110 MG/DL Test 08/26/17 12:26 08/26/17 16:57 08/26/17 23:46 08/27/17 05:16 Range/Units Glucometer 94 99 122 H 100 70-110 MG/DL Discharge Instructions to patient/family Please see electronic discharge instructions given to patient. Discharge Medications Reviewed and agree with Discharge Medication list on patient's Discharge Instruction sheet Clinical Quality Measures DVT/VTE Risk/Contraindication: Risk Factor Score Per Nursin RFS Level Per Nursing on Admit: 2=Moderate Copy Copies To 1: RONAK FLETCHER MD, BETHANY N MD Aug 27, 2017 10:23 am
[2017-08-27 12:00] VITALS: BP 109/67
== END 2017-08-27 13:15 | disposition home or self-care (01) | DRG 897 ==
LOC: EDUNIT# 10:50 → ER 10:51 → EDBEDREQ 13:07 → ICU 13:09 → UNDOADMOB 13:09 → ICU 13:34 → 4TH 08-25 12:50 → UNDODISOB 08-27 13:15
PROVIDERS: ADMIT Family Medicine; ATTEND Family Medicine
DX: F10.231 Alcohol dependence with withdrawal delirium (principal); R45.851 Suicidal ideations; F11.20 Opioid dependence, uncomplicated; F17.210 Nicotine dependence, cigarettes, uncomplicated
CPT/HCPCS: 36415; 80053; 80074; 80306; 80320; 81000; 82962; 84443; 85025; 85610; 85730; 86703; 93005; 96361; 96374

== ENCOUNTER 2017-10-30 18:59 | Inpatient (IN) | payer SELFPAY ==
[~2017-10-30] VITALS: Ht 177.8 cm; Wt 63.3 kg
[2017-10-30] VITALS (7 sets, daily range): BP systolic 116–138; BP diastolic 67–85
[~2017-10-30 18:59] MED LIST changes: +DULO30CA3 PO; +LORA-404 PO
[2017-10-30] MEDS ORDERED: NS IV 1000 ML 1,000 ML IV SCH (20:00)
--- NOTE | 2017-10-30 20:00 | ED Psychosocial ---
General Chief Complaint: Psych/Social Disorder Stated Complaint: DETOX REQUEST, SUICIDAL THOUGHTS Source: patient Exam Limitations: no limitations History of Present Illness Date Seen by Provider: Oct 30, 2017 Time Seen by Provider: 19:58 Initial Comments To ER with reports of Xanax withdrawal. He also reports drug use and alcohol use. He also reports that he is suicidal and has thought about hanging himself. He states that he's been taking his girlfriend's Xanax and his last dose was 10/27/17. He quit taking it because she ran out and has increased his alcohol use since then. Prior to this he was using between 2 and 5 of the 1 mg tablets daily. He also uses methamphetamine by smoking it most recently a few days ago. He is also been drinking several pints of vodka daily. He's also been taking some of his girlfriend's hydrocodone, between 4 and 5 of the 10 mg tablets daily. This would be his sixth presentation to this hospital for some form of detox complaint over the years. He follows with [facility] in [place] Timing/Duration: constant Severity: moderate Associated Symptoms: anxiety Allergies and Home Medications Allergies Coded Allergies: NKANo Known Allergies (Unverified Allergy, Mild, 03/28/09) No Known Drug Allergies (Unverified , 03/14/09) Home Medications Duloxetine HCl 30 Mg Capsule.dr, 30 MG PO DAILY, #30 Ref 0 Prescribed by: GRAYSON CASANOVA on 08/27/17 1018 Lorazepam 0.5 Mg Tablet, 0.5 MG PO TID for 1 Days, #3 Ref 0 Prescribed by: GRAYSON CASANOVA on 08/27/17 1018 Constitutional: see HPI EENTM: see HPI Respiratory: no symptoms reported Cardiovascular: no symptoms reported Genitourinary: no symptoms reported Musculoskeletal: no symptoms reported Skin: no symptoms reported Past Erswyyq-Rshift-Yedxrr Hx Patient Social History Alcohol Use: Regular Use Number of Drinks Today: AA Alcohol Beverage of Choice: Beer, Vodka Recreational Drug Use: Yes (METH, MARIJUANA) Smoking Status: Current Everyday Smoker Type Used: Cigarettes 2nd Hand Smoke Exposure: Yes Recent Foreign Travel: No Contact w/Someone Who Travel: No Recent Hopitalizations: Yes Immunizations Up To Date Tetanus Booster (TDap): Unknown Seasonal Allergies Seasonal Allergies: No Surgeries History of Surgeries: Yes Respiratory History of Respiratory Disorde: Yes Respiratory Disorders: COPD Currently Using CPAP: No Currently Using BIPAP: No Cardiovascular History of Cardiac Disorders: No Neurological History of Neurological Disord: Yes Reproductive System Hx Reproductive Disorders: No Genitourinary History of Genitourinary Disor: No Gastrointestinal History of Gastrointestinal Di: No Musculoskeletal History of Musculoskeletal Dis: No Endocrine History of Endocrine Disorders: No HEENT History of HEENT Disorders: Yes (calcified left parotid gland obstruction) Loss of Vision: Denies Hearing Impairment: Denies Cancer History of Cancer: No Psychosocial History of Psychiatric Problem: Yes (Panic attacks, suicide ideation with psychiatric admits, mood disorder) Behavioral Health Disorders: Sleep Difficulties, Anxiety, Suicide Attempts, Depression Integumentary History of Skin or Integumenta: No Blood Transfusions History of Blood Disorders: No Family Medical History Significant Family History: Heart Disease, Cancer, Psychiatric Problems Physical Exam Vital Signs Vital Signs - First Documented 10/30/17 19:47 Temp 96.6 Pulse 108 Resp 20 B/P (MAP) 92/64 (73) Pulse Ox 93 O2 Delivery Room Air Capillary Refill : General Appearance: WD/WN, no apparent distress, other (appears calm at this time.) HEENT: PERRL/EOMI, normal ENT inspection Respiratory: normal breath sounds, no respiratory distress, no accessory muscle use Cardiovascular: regular rate, rhythm, no murmur Gastrointestinal: normal bowel sounds, non tender, soft Neurologic/Psychiatric: alert, normal mood/affect, oriented x 3 Appearance/Memory: appropriate appearance, appropriate insight Behavior/Eye Contact: cooperative, good eye contact, normal speech Thoughts/Hallucinations: normal thought pattern, no apparent hallucination, No auditory hallucinations, No delusions, No flight of ideas Skin: normal color, warm/dry Progress/Results/Core Measures Results/Orders Lab Results Laboratory Tests Test 10/30/17 20:06 10/30/17 20:40 Range/Units White Blood Count 10.9 4.3-11.0 10^3/uL Red Blood Count 4.77 4.35-5.85 10^6/uL Hemoglobin 14.7 13.3-17.7 G/DL Hematocrit 41 40-54 % Mean Corpuscular Volume 87 80-99 FL Mean Corpuscular Hemoglobin 31 25-34 PG Mean Corpuscular Hemoglobin Concent 36 32-36 G/DL Red Cell Distribution Width 13.5 10.0-14.5 % Platelet Count 426 H 130-400 10^3/uL Mean Platelet Volume 9.0 7.4-10.4 FL Neutrophils (%) (Auto) 34 L 42-75 % Lymphocytes (%) (Auto) 46 H 12-44 % Monocytes (%) (Auto) 9 0-12 % Eosinophils (%) (Auto) 8 0-10 % Basophils (%) (Auto) 3 0-10 % Neutrophils # (Auto) 3.7 1.8-7.8 X 10^3 Lymphocytes # (Auto) 5.0 H 1.0-4.0 X 10^3 Monocytes # (Auto) 1.0 0.0-1.0 X 10^3 Eosinophils # (Auto) 0.9 H 0.0-0.3 10^3/uL Basophils # (Auto) 0.3 H 0.0-0.1 10^3/uL Sodium Level 143 135-145 MMOL/L Potassium Level 3.6 3.6-5.0 MMOL/L Chloride Level 109 H 98-107 MMOL/L Carbon Dioxide Level 17 L 21-32 MMOL/L Anion Gap 17 H 5-14 MMOL/L Blood Urea Nitrogen 10 7-18 MG/DL Creatinine 0.81 0.60-1.30 MG/DL Estimat Glomerular Filtration Rate > 60 BUN/Creatinine Ratio 12 Glucose Level 64 L 70-105 MG/DL Calcium Level 9.1 8.5-10.1 MG/DL Total Bilirubin 0.2 0.1-1.0 MG/DL Aspartate Amino Transf (AST/SGOT) 13 5-34 U/L Alanine Aminotransferase (ALT/SGPT) 7 0-55 U/L Alkaline Phosphatase 64 40-136 U/L Total Protein 7.3 6.4-8.2 GM/DL Albumin 4.0 3.2-4.5 GM/DL Lipase 46 8-78 U/L Acetaminophen Level < 10 L 10-30 UG/ML Serum Alcohol 99 H <10 MG/DL Urine Color YELLOW Urine Clarity CLEAR Urine pH 6 5-9 Urine Specific [place] 1.020 1.016-1.022 Urine Protein NEGATIVE NEGATIVE Urine Glucose (UA) NEGATIVE NEGATIVE Urine Ketones NEGATIVE NEGATIVE Urine Nitrite NEGATIVE NEGATIVE Urine Bilirubin NEGATIVE NEGATIVE Urine Urobilinogen NORMAL NORMAL MG/DL Urine Leukocyte Esterase 1+ H NEGATIVE Urine RBC (Auto) 2+ H NEGATIVE Urine RBC RARE /HPF Urine WBC 0-2 /HPF Urine Crystals NONE /LPF Urine Bacteria NEGATIVE /HPF Urine Casts NONE /LPF Urine Mucus NEGATIVE /LPF Urine Culture Indicated NO Urine Opiates Screen NEGATIVE NEGATIVE Urine Oxycodone Screen NEGATIVE NEGATIVE Urine Methadone Screen NEGATIVE NEGATIVE Urine Propoxyphene Screen NEGATIVE NEGATIVE Urine Barbiturates Screen NEGATIVE NEGATIVE Ur Tricyclic Antidepressants Screen NEGATIVE NEGATIVE Urine Phencyclidine Screen NEGATIVE NEGATIVE Urine Amphetamines Screen NEGATIVE NEGATIVE Urine Methamphetamines Screen POSITIVE H NEGATIVE Urine Benzodiazepines Screen POSITIVE H NEGATIVE Urine Cocaine Screen NEGATIVE NEGATIVE Urine Cannabinoids Screen NEGATIVE NEGATIVE My Orders Orders - CHADWICK MURILLO NUT BLANKER OPERATOR Cbc With Automated Diff (10/30/17 19:56) Comprehensive Metabolic Panel (10/30/17 19:56) Ua Culture If Indicated (10/30/17 19:56) Drug Screen Stat (Urine) (10/30/17 19:56) Acetaminophen (10/30/17 19:56) Lipase (10/30/17 19:56) Alcohol (10/30/17 19:56) Ekg Tracing (10/30/17 19:56) Ns Iv 1000 Ml (Sodium Chloride 0.9%) (10/30/17 20:00) Saline Lock/Iv-Start (10/30/17 19:56) D5 1/2 Ns W/Kcl 20 Meq/L (Dextrose 5%/0. (10/30/17 21:00) Vital Signs/I&O Vital Sign - Last 12Hours 10/30/17 19:47 Temp 96.6 Pulse 108 Resp 20 B/P (MAP) 92/64 (73) Pulse Ox 93 O2 Delivery Room Air Departure Communication (Admissions) Time/Spoke to Admitting Phy: 21:14 Communication I did discuss the case with Dr. Lao. She agrees with admission, banana bag, admit to ICU and consult manager social media in the morning. She had no further orders or requests. Progress Notes 6-appears more anxious than he did upon arrival, still states that he feels suicidal. 1 mg of lorazepam ordered Impression Impression: Primary Impression: Alcohol withdrawal Additional Impressions: Polysubstance abuse Suicidal ideation Disposition: ADMITTED INPATIENT Condition: Stable Admissions Decision to Admit Reason: Admit from ER (General) Decision to Admit/Date: Oct 30, 2017 Time/Decision to Admit Time: 21:15 Departure-Patient Inst. Referrals: NO,LOCAL PHYSICIAN (PCP/Family) Primary Care Physician CHADWICK MURILLO APRN Oct 30, 2017 20:00
[2017-10-30 20:17] LABS: BASOPHILS # (AUTO) 0.3 10^3/uL (0.0-0.1); BASOPHILS % (AUTO) 3 % (0-10); EOSINOPHILS # (AUTO) 0.9 10^3/uL (0.0-0.3); EOSINOPHILS % (AUTO) 8 % (0-10); HEMATOCRIT 41 % (40-54); HEMOGLOBIN 14.7 G/DL (13.3-17.7); LYMPHOCYTES % (AUTO) 46 % (12-44); MEAN CORPUSCULAR HEMOGLOBIN 31 PG (25-34); MEAN CORPUSCULAR HGB CONC 36 G/DL (32-36); MEAN CORPUSCULAR VOLUME 87 FL (80-99); MONOCYTES % (AUTO) 9 % (0-12); NEUTROPHILS # (AUTO) 3.7 X 10^3 (1.8-7.8); NEUTROPHILS % (AUTO) 34 % (42-75); PLATELET COUNT 426 10^3/uL (130-400); RED BLOOD COUNT 4.77 10^6/uL (4.35-5.85); RED CELL DISTRIBUTION WIDTH 13.5 % (10.0-14.5); WHITE BLOOD COUNT 10.9 10^3/uL (4.3-11.0)
[2017-10-30 20:38] LABS: ALANINE AMINOTRANSFERASE 7 U/L (0-55); ALKALINE PHOSPHATASE 64 U/L (40-136); BILIRUBIN,TOTAL 0.2 MG/DL (0.1-1.0); BUN/CREATININE RATIO 12; CALCIUM 9.1 MG/DL (8.5-10.1); CARBON DIOXIDE 17 MMOL/L (21-32); CHLORIDE 109 MMOL/L (98-107); CREATININE SERUM 0.81 MG/DL (0.60-1.30); GFR ESTIMATED > 60; GLUCOSE 64 MG/DL (70-105); LIPASE 46 U/L (8-78); POTASSIUM 3.6 MMOL/L (3.6-5.0); SODIUM 143 MMOL/L (135-145); TOTAL PROTEIN 7.3 GM/DL (6.4-8.2)
[2017-10-30 20:44] LABS: ACETAMINOPHEN < 10 UG/ML (10-30)
[2017-10-30 20:50] LABS: BILIRUBIN,URINE NEGATIVE (NEGATIVE); CLARITY,URINE CLEAR; COLOR,URINE YELLOW; GLUCOSE, URINE (UA) NEGATIVE (NEGATIVE); KETONES,URINE NEGATIVE (NEGATIVE); LEUKOCYTE ESTERASE ,URINE 1+ (NEGATIVE); NITRITE,URINE NEGATIVE (NEGATIVE); PH,URINE 6 (5-9); PROTEIN,URINE NEGATIVE (NEGATIVE); UROBILINOGEN,URINE NORMAL (NORMAL)
[2017-10-30 20:58] LABS: AMPHETAMINE SCREEN, URINE NEGATIVE (NEGATIVE); BARBITURATE SCREEN URINE NEGATIVE (NEGATIVE); BENZODIAZEPINES SCREEN URINE POSITIVE (NEGATIVE); CANNABINOID SCREEN, URINE NEGATIVE (NEGATIVE); COCAINE SCREEN URINE NEGATIVE (NEGATIVE); METHADONE STAT NEGATIVE (NEGATIVE); METHAMPHETAMINE SCREEN URINE S POSITIVE (NEGATIVE); OPIATE SCREEN URINE NEGATIVE (NEGATIVE); OXYCODONE STAT NEGATIVE (NEGATIVE); PROPOXYPHENE STAT NEGATIVE (NEGATIVE); TRICYCLIC ANTIDEPRESSANTS SCRE NEGATIVE (NEGATIVE)
[2017-10-30] MEDS ORDERED: D5 1/2 NS W/KCL 20 MEQ/L 1,000 ML IV SCH (21:00)
[2017-10-30 21:01] LABS: BACTERIA,URINE NEGATIVE /HPF; RBC,URINE RARE /HPF; WBC,URINE 0-2 /HPF
[2017-10-30] MEDS ORDERED: LORazepam INJ 2 MG/ML (ATIVAN) VIAL IVP ONE (21:30)
[2017-10-30] MEDS ORDERED: 1/2 NS IV SOLUTION 1,000 ML IV PRN (22:54)
[2017-10-30] MEDS ORDERED: ANTACID SUSP 30 ML UDC (MYLANTA) PO PRN (23:00)
[2017-10-30] MEDS ORDERED: ONDANSETRON 4 MG/2 ML (SDV) Z0FRAN IV PRN (23:00)
[2017-10-30] MEDS ORDERED: D5 1/2 NS 1000 ML IV SOLUTION 1,000 ML IV PRN (23:00)
[2017-10-30] MEDS ORDERED: LORazepam INJ 2 MG/ML (ATIVAN) VIAL IM/IV PRN (23:00)
[2017-10-30] MEDS ORDERED: SENNA W/DOCUSATE (SENOKOT S) TABLET PO PRN (23:00)
[2017-10-30] MEDS ORDERED: LORazepam INJ 2 MG/ML (ATIVAN) VIAL IV PRN (23:00)
[2017-10-30] MEDS ORDERED: ONDANSETRON 4 MG (ZOFRAN) ORAL DISSOLVE TAB SL PRN (23:00)
[2017-10-30] MEDS: D5 1/2 NS W/KCL 20 MEQ/L 1,000 ML IV SCH (23:43)
[2017-10-31] VITALS (26 sets, daily range): BP systolic 90–136; BP diastolic 51–84
[2017-10-31] MEDS: LORazepam 1 MG (ATIVAN) TAB PO PRN ×6 (03:06→20:04)
[2017-10-31] MEDS: D5 1/2 NS W/KCL 20 MEQ/L 1,000 ML IV SCH ×3 (04:04→18:29)
[2017-10-31 04:24] LABS: BASOPHILS # (AUTO) 0.3 10^3/uL (0.0-0.1); BASOPHILS % (AUTO) 3 % (0-10); EOSINOPHILS # (AUTO) 0.9 10^3/uL (0.0-0.3); EOSINOPHILS % (AUTO) 11 % (0-10); HEMATOCRIT 37 % (40-54); HEMOGLOBIN 12.8 G/DL (13.3-17.7); LYMPHOCYTES # (AUTO) 3.1 X 10^3 (1.0-4.0); LYMPHOCYTES % (AUTO) 38 % (12-44); MEAN CORPUSCULAR HEMOGLOBIN 31 PG (25-34); MEAN CORPUSCULAR HGB CONC 35 G/DL (32-36); MEAN CORPUSCULAR VOLUME 88 FL (80-99); MONOCYTES # (AUTO) 0.8 X 10^3 (0.0-1.0); MONOCYTES % (AUTO) 10 % (0-12); NEUTROPHILS # (AUTO) 3.2 X 10^3 (1.8-7.8); NEUTROPHILS % (AUTO) 38 % (42-75); PLATELET COUNT 350 10^3/uL (130-400); RED BLOOD COUNT 4.15 10^6/uL (4.35-5.85); RED CELL DISTRIBUTION WIDTH 13.6 % (10.0-14.5); WHITE BLOOD COUNT 8.2 10^3/uL (4.3-11.0)
[2017-10-31 04:37] LABS: BUN/CREATININE RATIO 14; CALCIUM 8.2 MG/DL (8.5-10.1); CARBON DIOXIDE 22 MMOL/L (21-32); CHLORIDE 110 MMOL/L (98-107); CREATININE SERUM 0.73 MG/DL (0.60-1.30); GFR ESTIMATED > 60; GLUCOSE 92 MG/DL (70-105); MAGNESIUM 1.7 MG/DL (1.8-2.4); POTASSIUM 3.9 MMOL/L (3.6-5.0); SODIUM 140 MMOL/L (135-145)
[2017-10-31] MEDS: THIAMINE 100 MG (VITAMIN B-1) TAB PO SCH (06:14)
[2017-10-31] MEDS: MULTIVIT W/MINERALS TAB (THERAGRAN M) PO SCH (06:14)
[2017-10-31] MEDS: MAGNESIUM OXIDE (MAG-OX)400 MG TAB PO SCH ×2 (08:08→20:04)
[2017-10-31] MEDS: FOLIC ACID 1 MG TAB PO SCH (08:08)
[2017-10-31] MEDS ORDERED: ARIP2TAB3 PO (10:59)
[2017-10-31] MEDS ORDERED: HYDR50TA76 PO (10:59)
--- NOTE | 2017-10-31 11:12 | History & Physicial (CHS) ---
MICHELLE CRANE MED STUDENT 10/31/17 1112: HPI History of Present Illness: Patient is a 56 yo M w/ PMH of polysubstance abuse including EtOH and depression who presented to the ED 10/30 w/ active SI. Patient states his daughter and he has been drinking and thinking about ending everything. Patient admitted to current SI and when asked if he had a planned stated he would probably hang himself but would have to invent some apparatus to do so, he does not have access to a gun. Patient has recently been drinking 1 -2 pints/day w/ last drink being 2 pints on 10/30 and taking Xanax 3-4 g/day last use 10/28. UDS positive for meth and benzos and BAL 99 upon presentation. Patient has a hx of DT about 8 years ago. When asked about his mood he states he is depressed and anxious, sleeping poorly, has lost interest in activities, has feelings of guilt, poor concentration and okay appetite. Source: patient Exam Limitations: no limitations Date seen by provider: Oct 31, 2017 Time Seen by Provider: 10:11 Attending Physician Fany Berg MD PCP No,Local Physician Consult Date of Admission Oct 30, 2017 at 21:35 Home Medications Home Medications Reviewed patient Home Medication Reconciliation Form Allergies Coded Allergies: NKANo Known Allergies (Unverified Allergy, Mild, 03/28/09) No Known Drug Allergies (Unverified , 03/14/09) OAB-Mwdqvi-Mgxwzr Hx Patient Social History Alcohol Use: Regular Use (1-2 pint/day) Recreational Drug Use: Yes (METH, MARIJUANA) Smoking Status: Current Everyday Smoker (METH, MARIJUANA) Type Used: Cigarettes (1.5 PPDx40 yrs) 2nd Hand Smoke Exposure: Yes Recent Foreign Travel: No Contact w/other who traveled: No Recent Hopitalizations: Yes Recent Infectious Disease Expo: No Physical Abuse Screen: No Sexual Abuse: No Immunizations Up To Date Tetanus Booster (TDap): Unknown Past Medical History Alcohol Abuse Polysubstance Abuse - Opiates, Xanax Depression Suicidal Ideation Tobacco Abuse Family Medical History Significant Family History: Heart Disease, Cancer, Psychiatric Problems Review of Systems ([facility]) Constitutional: weakness EENTM: No blurred vision, No throat pain Respiratory: cough, No hemoptysis, No short of breath Cardiovascular: No chest pain, No edema Gastrointestinal: No abdominal pain, No constipation, No diarrhea Genitourinary: No discharge, No dysuria, No hematuria Musculoskeletal: no symptoms reported Skin: no symptoms reported Psychiatric/Neurological: See HPI, Anxiety, Depressed, Headache, Denies Numbness, Denies Paresthesia, Tremors Reviewed Test Results Reviewed Test Results Lab Laboratory Tests Test 10/30/17 20:06 10/30/17 20:40 10/31/17 03:55 Range/Units White Blood Count 10.9 8.2 4.3-11.0 10^3/uL Red Blood Count 4.77 4.15 L 4.35-5.85 10^6/uL Hemoglobin 14.7 12.8 L 13.3-17.7 G/DL Hematocrit 41 37 L 40-54 % Mean Corpuscular Volume 87 88 80-99 FL Mean Corpuscular Hemoglobin 31 31 25-34 PG Mean Corpuscular Hemoglobin Concent 36 35 32-36 G/DL Red Cell Distribution Width 13.5 13.6 10.0-14.5 % Platelet Count 426 H 350 130-400 10^3/uL Mean Platelet Volume 9.0 9.0 7.4-10.4 FL Neutrophils (%) (Auto) 34 L 38 L 42-75 % Lymphocytes (%) (Auto) 46 H 38 12-44 % Monocytes (%) (Auto) 9 10 0-12 % Eosinophils (%) (Auto) 8 11 H 0-10 % Basophils (%) (Auto) 3 3 0-10 % Neutrophils # (Auto) 3.7 3.2 1.8-7.8 X 10^3 Lymphocytes # (Auto) 5.0 H 3.1 1.0-4.0 X 10^3 Monocytes # (Auto) 1.0 0.8 0.0-1.0 X 10^3 Eosinophils # (Auto) 0.9 H 0.9 H 0.0-0.3 10^3/uL Basophils # (Auto) 0.3 H 0.3 H 0.0-0.1 10^3/uL Sodium Level 143 140 135-145 MMOL/L Potassium Level 3.6 3.9 3.6-5.0 MMOL/L Chloride Level 109 H 110 H 98-107 MMOL/L Carbon Dioxide Level 17 L 22 21-32 MMOL/L Anion Gap 17 H 8 5-14 MMOL/L Blood Urea Nitrogen 10 10 7-18 MG/DL Creatinine 0.81 0.73 0.60-1.30 MG/DL Estimat Glomerular Filtration Rate > 60 > 60 BUN/Creatinine Ratio 12 14 Glucose Level 64 L 92 70-105 MG/DL Calcium Level 9.1 8.2 L 8.5-10.1 MG/DL Total Bilirubin 0.2 0.1-1.0 MG/DL Aspartate Amino Transf (AST/SGOT) 13 5-34 U/L Alanine Aminotransferase (ALT/SGPT) 7 0-55 U/L Alkaline Phosphatase 64 40-136 U/L Total Protein 7.3 6.4-8.2 GM/DL Albumin 4.0 3.2-4.5 GM/DL Lipase 46 8-78 U/L Acetaminophen Level < 10 L 10-30 UG/ML Serum Alcohol 99 H <10 MG/DL Urine Color YELLOW Urine Clarity CLEAR Urine pH 6 5-9 Urine Specific [place] 1.020 1.016-1.022 Urine Protein NEGATIVE NEGATIVE Urine Glucose (UA) NEGATIVE NEGATIVE Urine Ketones NEGATIVE NEGATIVE Urine Nitrite NEGATIVE NEGATIVE Urine Bilirubin NEGATIVE NEGATIVE Urine Urobilinogen NORMAL NORMAL MG/DL Urine Leukocyte Esterase 1+ H NEGATIVE Urine RBC (Auto) 2+ H NEGATIVE Urine RBC RARE /HPF Urine WBC 0-2 /HPF Urine Crystals NONE /LPF Urine Bacteria NEGATIVE /HPF Urine Casts NONE /LPF Urine Mucus NEGATIVE /LPF Urine Culture Indicated NO Urine Opiates Screen NEGATIVE NEGATIVE Urine Oxycodone Screen NEGATIVE NEGATIVE Urine Methadone Screen NEGATIVE NEGATIVE Urine Propoxyphene Screen NEGATIVE NEGATIVE Urine Barbiturates Screen NEGATIVE NEGATIVE Ur Tricyclic Antidepressants Screen NEGATIVE NEGATIVE Urine Phencyclidine Screen NEGATIVE NEGATIVE Urine Amphetamines Screen NEGATIVE NEGATIVE Urine Methamphetamines Screen POSITIVE H NEGATIVE Urine Benzodiazepines Screen POSITIVE H NEGATIVE Urine Cocaine Screen NEGATIVE NEGATIVE Urine Cannabinoids Screen NEGATIVE NEGATIVE Phosphorus Level 3.0 2.3-4.7 MG/DL Magnesium Level 1.7 L 1.8-2.4 MG/DL Physical Exam-([facility]) Physical Exam Vital Signs VS - Last 72 Hours, by Label 10/30/17 10/30/17 10/30/17 10/30/17 19:47 22:12 22:26 22:30 Temp 96.6 Pulse 108 80 78 82 Resp 20 18 35 26 B/P (MAP) 92/64 (73) 116/70 138/67 (90) 122/77 (92) Pulse Ox 93 93 95 94 O2 Delivery Room Air Room Air Room Air Room Air 10/30/17 10/30/17 10/30/17 10/30/17 22:33 22:45 22:50 23:00 Temp 96.3 Pulse 76 73 76 Resp 16 18 B/P (MAP) 123/85 (98) 124/82 (96) Pulse Ox 96 94 O2 Delivery Room Air Room Air 10/30/17 10/30/17 10/30/17 10/30/17 23:01 23:15 23:30 23:45 Pulse 73 76 77 Resp 18 11 16 B/P (MAP) 131/76 (94) 116/76 (89) 122/80 (94) Pulse Ox 92 93 93 O2 Delivery Room Air Room Air Room Air Room Air 10/31/17 10/31/17 10/31/17 10/31/17 00:00 00:00 00:15 00:30 Pulse 76 80 75 Resp 14 16 15 B/P (MAP) 119/74 (89) 118/70 (86) 126/82 (97) Pulse Ox 93 92 92 O2 Delivery Room Air Room Air Room Air Room Air 10/31/17 10/31/17 10/31/17 10/31/17 00:38 01:00 01:00 02:00 Temp 96.8 Pulse 77 77 75 Resp 23 13 B/P (MAP) 119/82 (94) 100/69 (79) Pulse Ox 94 94 O2 Delivery Room Air Room Air 10/31/17 10/31/17 10/31/17 10/31/17 03:00 04:00 04:00 04:09 Temp 96.3 Pulse 80 83 Resp 10 20 B/P (MAP) 107/63 (78) 112/65 (81) Pulse Ox 93 93 O2 Delivery Room Air Nasal Cannula Room Air O2 Flow Rate 1.00 10/31/17 10/31/17 10/31/17 10/31/17 05:00 06:00 07:00 07:56 Temp 96.9 Pulse 79 80 76 Resp 18 19 B/P (MAP) 94/51 (65) 90/58 (69) Pulse Ox 93 94 O2 Delivery Nasal Cannula Nasal Cannula O2 Flow Rate 2.00 2.00 10/31/17 08:00 O2 Delivery Nasal Cannula O2 Flow Rate 2.00 Capillary Refill : Less Than 3 Seconds Temperature (Fahrenheit): 96.9 General Appearance: mild distress Eyes: Bilateral Eye EOMI HEENT: No scleral icterus (R), No scleral icterus (L), other (protruding L parotid gland, states clogged but won't do surgery 2/2 facial nerve) Respiratory: No respiratory distress, wheezing (bilaterally throughout lung dejesus) Cardiovascular: normal peripheral pulses, regular rate, rhythm, no edema, no JVD, no murmur Peripheral Pulses: 2+ Dorsalis Pedis (R), 2+ Left Dors-Pedis (L), 2+ Radial Pulses (R), 2+ Radial Pulses (L) Gastrointestinal: normal bowel sounds, non tender, soft, No distended, No guarding Extremities: normal range of motion, no pedal edema 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, alert, oriented x 3 Skin: normal color, warm/dry Clinical Quality Measures DVT/VTE Risk/Contraindication: Risk Factor Score Per Nursin RFS Level Per Nursing on Admit: 2=Moderate Copy Copies To 1: Leif MCALLISTER Assessment/Plan Assessment/Plan Admission Dx Active SI Plan Polysubstance abuse including benzos and EtOH EtOH 1-2 pints/day last use 2 pints 10/30 Xanax 3-4 g/day last use 10/28 Hx of DT ~8 yrs ago [facility] protocol Thiamine 100 mg qd Folic acid 1 mg qd KCl/dextrose 150 mL/h Consult psychiatry Continue ICU level of care FANY BERG MD 11/01/177: HPI History of Present Illness: Continues to have a plan and suicidal ideation this AM. Having significant shaking and nausea this AM. Home Medications Allergies Coded Allergies: NKANo Known Allergies (Unverified Allergy, Mild, 03/28/09) No Known Drug Allergies (Unverified , 03/14/09) MBS-Rblxkb-Pihydq Hx Patient Social History Living Status: Lives alone in house Past Medical History Alcohol Dependence h/o EtOH withdraw seizures Tobacco Use Polysubstance Abuse Physical Exam-([facility]) Physical Exam Vital Signs VS - Last 72 Hours, by Label 10/30/17 10/30/17 10/30/17 10/30/17 19:47 22:12 22:26 22:30 Temp 96.6 Pulse 108 80 78 82 Resp 20 18 35 26 B/P (MAP) 92/64 (73) 116/70 138/67 (90) 122/77 (92) Pulse Ox 93 93 95 94 O2 Delivery Room Air Room Air Room Air Room Air 10/30/17 10/30/17 10/30/17 10/30/17 22:33 22:45 22:50 23:00 Temp 96.3 Pulse 76 73 76 Resp 16 18 B/P (MAP) 123/85 (98) 124/82 (96) Pulse Ox 96 94 O2 Delivery Room Air Room Air 10/30/17 10/30/17 10/30/17 10/30/17 23:01 23:15 23:30 23:45 Pulse 73 76 77 Resp 18 11 16 B/P (MAP) 131/76 (94) 116/76 (89) 122/80 (94) Pulse Ox 92 93 93 O2 Delivery Room Air Room Air Room Air Room Air 10/31/17 10/31/17 10/31/17 10/31/17 00:00 00:00 00:15 00:30 Pulse 76 80 75 Resp 14 16 15 B/P (MAP) 119/74 (89) 118/70 (86) 126/82 (97) Pulse Ox 93 92 92 O2 Delivery Room Air Room Air Room Air Room Air 10/31/17 10/31/17 10/31/17 10/31/17 00:38 01:00 01:00 02:00 Temp 96.8 Pulse 77 77 75 Resp 23 13 B/P (MAP) 119/82 (94) 100/69 (79) Pulse Ox 94 94 O2 Delivery Room Air Room Air 10/31/17 10/31/17 10/31/17 10/31/17 03:00 04:00 04:00 04:09 Temp 96.3 Pulse 80 83 Resp 10 20 B/P (MAP) 107/63 (78) 112/65 (81) Pulse Ox 93 93 O2 Delivery Room Air Nasal Cannula Room Air O2 Flow Rate 1.00 10/31/17 10/31/17 10/31/17 10/31/17 05:00 06:00 07:00 07:00 Pulse 79 80 77 76 Resp 18 19 35 B/P (MAP) 94/51 (65) 90/58 (69) 111/66 (81) Pulse Ox 93 94 94 O2 Delivery Nasal Cannula Nasal Cannula Nasal Cannula O2 Flow Rate 2.00 2.00 2.00 10/31/17 10/31/17 10/31/17 10/31/17 07:56 08:00 08:00 09:00 Temp 96.9 Pulse 89 90 Resp 19 22 B/P (MAP) 129/83 (98) 113/73 (86) Pulse Ox 94 95 O2 Delivery Nasal Cannula Nasal Cannula Nasal Cannula O2 Flow Rate 2.00 2.00 2.00 10/31/17 10/31/17 10/31/17 10/31/17 10:00 11:00 11:35 11:36 Temp 97.3 Pulse 101 84 Resp 19 20 B/P (MAP) 116/84 (95) 121/71 (88) Pulse Ox 94 91 O2 Delivery Nasal Cannula Nasal Cannula Nasal Cannula O2 Flow Rate 2.00 2.00 2.00 10/31/17 10/31/17 10/31/17 10/31/17 12:00 13:00 13:00 13:27 Pulse 88 98 101 Resp 24 35 B/P (MAP) 107/75 (86) 93/56 (68) Pulse Ox 96 96 92 O2 Delivery Nasal Cannula Nasal Cannula Room Air O2 Flow Rate 2.00 2.00 10/31/17 10/31/17 10/31/17 10/31/17 14:00 15:00 15:04 15:11 Temp 99.0 Pulse 87 93 Resp 19 20 B/P (MAP) 112/77 (89) 125/80 (95) Pulse Ox 94 94 O2 Delivery Room Air Room Air Room Air 10/31/17 10/31/17 10/31/17 10/31/17 16:00 17:00 18:00 19:00 Pulse 87 88 91 116 B/P (MAP) 117/75 (89) 136/83 (100) 132/69 (90) 121/79 (93) Pulse Ox 94 93 98 94 O2 Delivery Room Air Room Air Room Air Room Air 10/31/17 10/31/17 10/31/17 10/31/17 19:00 20:00 20:00 20:00 Temp 100.0 Pulse 109 108 B/P (MAP) 131/81 (98) Pulse Ox 94 O2 Delivery Room Air Room Air 2/16/18 10/31/17 10/31/17 10/31/17 21:00 22:00 23:00 23:34 Pulse 97 100 88 B/P (MAP) 129/82 (98) 114/62 (79) 102/58 (73) Pulse Ox 95 94 93 O2 Delivery Room Air Room Air Room Air Room Air 11/01/17 11/01/17 11/01/17 11/01/17 00:00 00:00 01:00 01:00 Temp 97.7 Pulse 90 87 85 B/P (MAP) 112/66 (81) 110/70 (83) Pulse Ox 93 94 O2 Delivery Room Air Room Air 11/01/17 11/01/17 11/01/17 11/01/17 02:00 03:00 03:50 04:00 Pulse 88 84 88 B/P (MAP) 108/69 (82) 123/6 (45) 110/69 (83) Pulse Ox 93 93 93 O2 Delivery Room Air Room Air Room Air Room Air 11/01/17 11/01/17 11/01/17 11/01/17 05:00 06:00 07:00 07:00 Pulse 78 82 89 88 B/P (MAP) 115/64 (81) 129/48 (75) 125/80 (95) Pulse Ox 94 94 94 O2 Delivery Room Air Room Air Room Air 11/01/17 11/01/17 11/01/17 11/01/17 07:34 07:44 08:00 09:02 Temp 98.0 Pulse 76 81 Resp 14 12 20 B/P (MAP) 121/71 (88) 116/73 (87) Pulse Ox 92 96 97 O2 Delivery Room Air Room Air Room Air Room Air 11/01/17 11/01/17 11/01/17 11/01/17 10:03 11:01 11:28 12:00 Temp 97.9 Pulse 82 72 89 Resp 16 20 16 B/P (MAP) 106/72 (83) 134/69 (90) 128/91 (103) Pulse Ox 96 95 98 O2 Delivery Room Air Room Air Room Air 11/01/17 11/01/17 11/01/17 11/01/17 12:25 13:01 13:04 14:14 Temp 97.0 Pulse 84 86 74 Resp 18 B/P (MAP) 108/72 (84) 104/59 (74) Pulse Ox 95 93 O2 Delivery Room Air Room Air Room Air 11/01/17 11/01/17 11/01/17 11/01/17 15:33 15:35 15:46 16:25 Temp 96.4 Pulse 80 80 78 Resp 20 18 B/P (MAP) 114/85 (95) 100/63 (75) Pulse Ox 97 97 94 O2 Delivery Room Air Room Air Room Air FiO2 21 11/01/17 11/01/17 11/01/17 11/01/17 17:12 18:02 19:00 19:06 Pulse 76 79 81 Resp 18 18 B/P (MAP) 138/77 (97) 127/80 (96) Pulse Ox 95 92 94 O2 Delivery Room Air Room Air Room Air 11/01/17 11/01/17 11/01/17 19:28 19:29 20:00 Temp 97.2 Pulse 113 108 Resp 19 19 B/P (MAP) 109/73 (85) 93/58 (70) Pulse Ox 96 92 O2 Delivery Room Air Room Air Room Air General Appearance: WD/WN, mild distress Respiratory: chest non-tender, no respiratory distress, no accessory muscle use , wheezing (bilaterally throughout lung dejesus) Cardiovascular: normal peripheral pulses, regular rate, rhythm, no edema, no JVD, no murmur Gastrointestinal: normal bowel sounds, non tender, soft, No hepatomegaly, No spleenomegaly Extremities: no pedal edema, no calf tenderness 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, alert, oriented x 3, other ( + shaking in hands ) Skin: normal color, warm/dry Lymphatic: no adenopathy Copy Copies To 1: Leif MCALLISTER Assessment/Plan Assessment/Plan (1) Alcohol withdrawal Status: Acute Assessment & Plan: - h/o withdraw seizures, Sz precautions - Banana bag given in ER, will continue thiamin and Folic acid daily - CIWS protocol, he is requiring ativan every 1-2 hrs Qualifiers: Qualified Codes: F10.230 - Alcohol dependence with withdrawal, uncomplicated (2) Suicidal ideation Status: Acute Assessment & Plan: - Will be evaluated for inpatient psych after medically stable, likely friday (3) Polysubstance abuse Status: Acute Assessment & Plan: - Discussed the need to refrain from using drugs MICHELLE CRANE MED STUDENT Oct 31, 2017 11:12 FANY BERG MD Nov 01, 2017 21:17
[2017-10-31] MEDS: NICOTINE 21 MG (NICODERM) PATCH TD SCH (15:47)
--- OUTSIDE RECORDS SUMMARY | 2017-10-31 16:06 | XMS REPORT | Continuity of Care Document ---
Author Author [facility] Organization [facility] Address Unknown Phone Unavailable Allergies Active Description Code Type Severity Reaction Onset Reported/Identified Relationship to Patient Clinical Status Yes No Known Drug Allergies [id number] Drug Allergy Mild N/A 03/14/2009 Yes NKANo Known Allergies NKA Miscellaneous Allergy Mild N/A 03/28/2009 Medications There is no data. Problems Date Dx Coded Attending Type Code Diagnosis Diagnosed By 05/21/2013 CYNTHIA BUSCH DO S Ot 272.0 PURE HYPERCHOLESTEROLEM 05/21/2013 CYNTHIA BUSCH DO S Ot 276.8 HYPOPOTASSEMIA 05/21/2013 CYNTHIA BUSCH DO S Ot 300.00 ANXIETY STATE NOS 05/21/2013 CYNTHIA BUSCH DO S Ot 300.01 PANIC DISORDER WITHOUT AGORAPHOBIA 05/21/2013 CYNTHIA BUSCH DO S Ot 305.00 ALCOHOL ABUSE-UNSPEC 05/21/2013 CYNTHIA BUSCH DO S Ot 305.1 TOBACCO USE DISORDER 05/21/2013 DARLIN BUSCH DOLINE S Ot 305.20 CANNABIS ABUSE-UNSPEC 05/21/2013 CYNTHIA BUSCH DO S Ot 305.30 HALLUCINOG ABUSE-UNSPEC 05/21/2013 CYNTHIA BUSCH DO S Ot 305.60 COCAINE ABUSE-UNSPEC 05/21/2013 DARLIN BUSCH DOLINE S Ot 305.70 AMPHETAMINE ABUSE-UNSPEC 05/21/2013 DARLIN BUSCH DOLINE S Ot 305.90 DRUG ABUSE NEC-UNSPEC 05/21/2013 CYNTHIA BUSCH DO S Ot 308.9 ACUTE STRESS REACT NOS 05/21/2013 DARLIN BUSCH DOLINE S Ot 311 DEPRESSIVE DISORDER NEC 05/21/2013 CYNTHIA BUSCH DO S Ot 345.90 EPILEPSY UNSPEC W/O MENTION INTRACTABLE 05/21/2013 CYNTHIA BUSCH DO S Ot 458.9 HYPOTENSION NOS 05/21/2013 CYNTHIA BUSCH DO Ot 969.3 POISON-ANTIPSYCHOTIC NEC 05/21/2013 CYNTHIA BUSCH DO Ot 969.4 POIS-BENZODIAZEPINE HARDEN 05/21/2013 CYNTHIA BUSCH DO Ot E853.2 ACC POISN-BENZDIAZ TRANQ 05/21/2013 CYNTHIA BUSCH DO Ot E853.8 ACC POISN-TRANQUILZR NEC 05/21/2013 CYNTHIA BUSCH DO Ot V62.84 [facility]ICID[facility] F10.231 ALCOHOL DEPENDENCE WITH WITHDRAWAL DELIR 08/27/2017 [facility] YEPEZ Ot F11.20 OPIOID DEPENDENCE, UNCOMPLICATED 08/27/2017 [facility] Enciso Ot F17.210 NICOTINE DEPENDENCE, CIGARETTES, UNCOMPL 08/27/2017 [facility] YEPEZ Ot R45.851 SUICIDAL IDEATIONS Procedures There is no data. Results Test Result Range Complete blood count (CBC) with automated white blood cell (WBC) differential - 08/24/17 11:10 Blood leukocytes automated count (number/volume) 11.8 10*3/uL 4.3-11.0 Blood erythrocytes automated count (number/volume) 4.77 10*6/uL 4.35-5.85 Venous blood hemoglobin measurement (mass/volume) 14.9 g/dL 13.3-17.7 Blood hematocrit (volume fraction) 42 % 40-54 Automated erythrocyte mean corpuscular volume 88 [foz_us] 80-99 Automated erythrocyte mean corpuscular hemoglobin (mass per erythrocyte) 31 pg 25-34 Automated erythrocyte mean corpuscular hemoglobin concentration measurement ( mass/volume) 36 g/dL 32-36 Automated erythrocyte distribution width ratio 13.7 % 10.0-14.5 Automated blood platelet count (count/volume) 391 10*3/uL 130-400 Automated blood platelet mean volume measurement 9.1 [foz_us] 7.4-10.4 Automated blood neutrophils/100 leukocytes 60 % 42-75 Automated blood lymphocytes/100 leukocytes 27 % 12-44 Blood monocytes/100 leukocytes 9 % 0-12 Automated blood eosinophils/100 leukocytes 2 % 0-10 Automated blood basophils/100 leukocytes 2 % 0-10 Blood neutrophils automated count (number/volume) 7.1 10*3 1.8-7.8 Blood lymphocytes automated count (number/volume) 3.1 10*3 1.0-4.0 Blood monocytes automated count (number/volume) 1.0 10*3 0.0-1.0 Automated eosinophil count 0.3 10*3/uL 0.0-0.3 Automated blood basophil count (count/volume) 0.3 10*3/uL 0.0-0.1 Comprehensive metabolic panel - 08/24/17 11:10 Serum or plasma sodium measurement (moles/volume) 139 mmol/L 135-145 Serum or plasma potassium measurement (moles/volume) 3.7 mmol/L 3.6-5.0 Serum or plasma chloride measurement (moles/volume) 105 mmol/L 98-107 Carbon dioxide 18 mmol/L 21-32 Serum or plasma anion gap determination (moles/volume) 16 mmol/L 5-14 Serum or plasma urea nitrogen measurement (mass/volume) 5 mg/dL 7-18 Serum or plasma creatinine measurement (mass/volume) 0.66 mg/dL 0.60-1.30 Serum or plasma urea nitrogen/creatinine mass ratio 8 NRG Serum or plasma creatinine measurement with calculation of estimated glomerular filtration rate > NRG Serum or plasma glucose measurement (mass/volume) 85 mg/dL 70-105 Serum or plasma calcium measurement (mass/volume) 8.9 mg/dL 8.5-10.1 Serum or plasma total bilirubin measurement (mass/volume) 0.2 mg/dL 0.1-1.0 Serum or plasma alkaline phosphatase measurement (enzymatic activity/volume) 68 U/L 40-136 Serum or plasma aspartate aminotransferase measurement (enzymatic activity/ volume) 16 U/L 5-34 Serum or plasma alanine aminotransferase measurement (enzymatic activity/volume ) 9 U/L 0-55 Serum or plasma protein measurement (mass/volume) 7.0 g/dL 6.4-8.2 Serum or plasma albumin measurement (mass/volume) 4.0 g/dL 3.2-4.5 Serum or plasma thyrotropin measurement by detection limit <=0.05 miu/l (units/ volume) - 08/24/17 11:10 Serum or plasma thyrotropin measurement by detection limit <=0.05 miu/l (units/ volume) 0.42 u[iU]/mL 0.35-4.94 Serum or plasma ethanol measurement (mass/volume) - 08/24/17 11:10 Serum or plasma ethanol measurement (mass/volume) 76 mg/dL <10 Urine drug screening test - 08/24/17 11:20 Urine phencyclidine detection by screening method NEGATIVE NEGATIVE Urine benzodiazepines detection by screening method NEGATIVE NEGATIVE Urine cocaine detection NEGATIVE NEGATIVE Urine amphetamines detection by screening method NEGATIVE NEGATIVE Urine methamphetamine detection by screening method NEGATIVE NEGATIVE Urine cannabinoids detection by screening method NEGATIVE NEGATIVE Urine opiates detection by screening method POSITIVE NEGATIVE Urine barbiturates detection NEGATIVE NEGATIVE Screening urine tricyclic antidepressants detection NEGATIVE NEGATIVE Urine methadone detection by screening method NEGATIVE NEGATIVE Urine oxycodone detection NEGATIVE NEGATIVE Urine propoxyphene detection NEGATIVE NEGATIVE Capillary blood glucose measurement by glucometer (mass/volume) - 08/24/17 17: 49 Capillary blood glucose measurement by glucometer (mass/volume) 118 mg/dL 70-110 Complete urinalysis with reflex to culture - 08/24/17 21:15 Urine color determination YELLOW NRG Urine clarity determination CLEAR NRG Urine pH measurement by test strip 6.5 5-9 Specific gravity of urine by test strip 1.015 1.016- 1.022 Urine protein assay by test strip, semi-quantitative NEGATIVE NEGATIVE Urine glucose detection by automated test strip NEGATIVE NEGATIVE Erythrocytes detection in urine sediment by light microscopy 2+ NEGATIVE Urine ketones detection by automated test strip NEGATIVE NEGATIVE Urine nitrite detection by test strip NEGATIVE NEGATIVE Urine total bilirubin detection by test strip NEGATIVE NEGATIVE Urine urobilinogen measurement by automated test strip (mass/volume) NORMAL NORMAL Urine leukocyte esterase detection by dipstick NEGATIVE NEGATIVE Automated urine sediment erythrocyte count by microscopy (number/high power field) [HPF] NRG Automated urine sediment leukocyte count by microscopy (number/high power field ) RARE NRG Bacteria detection in urine sediment by light microscopy NEGATIVE NRG Crystals detection in urine sediment by light microscopy NONE NRG Casts detection in urine sediment by light microscopy NONE NRG Mucus detection in urine sediment by light microscopy NEGATIVE NRG Complete urinalysis with reflex to culture NO NRG Capillary blood glucose measurement by glucometer (mass/volume) - 08/24/17 23: 42 Capillary blood glucose measurement by glucometer (mass/volume) 91 mg/dL 70-110 Complete blood count (CBC) with automated white blood cell (WBC) differential - 08/25/17 04:55 Blood leukocytes automated count (number/volume) 9.8 10*3/uL 4.3-11.0 Blood erythrocytes automated count (number/volume) 4.48 10*6/uL 4.35-5.85 Venous blood hemoglobin measurement (mass/volume) 13.9 g/dL 13.3-17.7 Blood hematocrit (volume fraction) 40 % 40-54 Automated erythrocyte mean corpuscular volume 89 [foz_us] 80-99 Automated erythrocyte mean corpuscular hemoglobin (mass per erythrocyte) 31 pg 25-34 Automated erythrocyte mean corpuscular hemoglobin concentration measurement ( mass/volume) 35 g/dL 32-36 Automated erythrocyte distribution width ratio 13.7 % 10.0-14.5 Automated blood platelet count (count/volume) 341 10*3/uL 130-400 Automated blood platelet mean volume measurement 9.2 [foz_us] 7.4-10.4 Automated blood neutrophils/100 leukocytes 51 % 42-75 Automated blood lymphocytes/100 leukocytes 32 % 12-44 Blood monocytes/100 leukocytes 10 % 0-12 Automated blood eosinophils/100 leukocytes 5 % 0-10 Automated blood basophils/100 leukocytes 2 % 0-10 Blood neutrophils automated count (number/volume) 5.0 10*3 1.8-7.8 Blood lymphocytes automated count (number/volume) 3.2 10*3 1.0-4.0 Blood monocytes automated count (number/volume) 1.0 10*3 0.0-1.0 Automated eosinophil count 0.5 10*3/uL 0.0-0.3 Automated blood basophil count (count/volume) 0.2 10*3/uL 0.0-0.1 PT panel in platelet poor plasma by coagulation assay - 08/25/17 04:55 Prothrombin time (PT) in platelet poor plasma by coagulation assay 13.5 s 12.2-14.7 INR in platelet poor plasma or blood by coagulation assay 1.0 0.8-1.4 Activated partial thromboplastin time (aPTT) in platelet poor plasma bycoagulation assay - 08/25/17 04:55 Activated partial thromboplastin time (aPTT) in platelet poor plasma bycoagulation assay 30 s 24-35 Comprehensive metabolic panel - 08/25/17 04:55 Serum or plasma sodium measurement (moles/volume) 138 mmol/L 135-145 Serum or plasma potassium measurement (moles/volume) 3.9 mmol/L 3.6-5.0 Serum or plasma chloride measurement (moles/volume) 105 mmol/L 98-107 Carbon dioxide 26 mmol/L 21-32 Serum or plasma anion gap determination (moles/volume) 7 mmol/L 5-14 Serum or plasma urea nitrogen measurement (mass/volume) 7 mg/dL 7-18 Serum or plasma creatinine measurement (mass/volume) 0.68 mg/dL 0.60-1.30 Serum or plasma urea nitrogen/creatinine mass ratio 10 NRG Serum or plasma creatinine measurement with calculation of estimated glomerular filtration rate > NRG Serum or plasma glucose measurement (mass/volume) 122 mg/dL 70-105 Serum or plasma calcium measurement (mass/volume) 8.5 mg/dL 8.5-10.1 Serum or plasma total bilirubin measurement (mass/volume) 0.3 mg/dL 0.1-1.0 Serum or plasma alkaline phosphatase measurement (enzymatic activity/volume) 56 U/L 40-136 Serum or plasma aspartate aminotransferase measurement (enzymatic activity/ volume) 17 U/L 5-34 Serum or plasma alanine aminotransferase measurement (enzymatic activity/volume ) 13 U/L 0-55 Serum or plasma protein measurement (mass/volume) 5.8 g/dL 6.4-8.2 Serum or plasma albumin measurement (mass/volume) 3.3 g/dL 3.2-4.5 Human immunodeficiency virus (HIV) type 1 and 2 antibody detection - 08/25/17 04:55 Serum HIV 1+2 antibody detection by immunoblot Non-Reactive Non-Reactive Acute hepatitis panel - 08/25/17 04:55 Confirmatory quantitative serum or plasma hepatitis B virus surface antigen measurement Non-Reactive Non-Reactive Hepatitis A virus IgM antibody assay Non-Reactive Non- Reactive Hepatitis B virus core IgM antibody assay Non-Reactive Non-Reactive Serum hepatitis C virus antibody detection Non-Reactive Non-Reactive Capillary blood glucose measurement by glucometer (mass/volume) - 08/25/17 11: 56 Capillary blood glucose measurement by glucometer (mass/volume) 122 mg/dL 70-110 Capillary blood glucose measurement by glucometer (mass/volume) - 08/25/17 17: 54 Capillary blood glucose measurement by glucometer (mass/volume) 114 mg/dL 70-110 Capillary blood glucose measurement by glucometer (mass/volume) - 08/26/17 01: 25 Capillary blood glucose measurement by glucometer (mass/volume) 112 mg/dL 70-110 Capillary blood glucose measurement by glucometer (mass/volume) - 08/26/17 05: 46 Capillary blood glucose measurement by glucometer (mass/volume) 110 mg/dL 70-110 Capillary blood glucose measurement by glucometer (mass/volume) - 08/26/17 12: 26 Capillary blood glucose measurement by glucometer (mass/volume) 94 mg/dL 70-110 Capillary blood glucose measurement by glucometer (mass/volume) - 08/26/17 16: 57 Capillary blood glucose measurement by glucometer (mass/volume) 99 mg/dL 70-110 Capillary blood glucose measurement by glucometer (mass/volume) - 08/26/17 23: 46 Capillary blood glucose measurement by glucometer (mass/volume) 122 mg/dL 70-110 Capillary blood glucose measurement by glucometer (mass/volume) - 08/27/17 05: 16 Capillary blood glucose measurement by glucometer (mass/volume) 100 mg/dL 70-110 Capillary blood glucose measurement by glucometer (mass/volume) - 08/27/17 12: 01 Capillary blood glucose measurement by glucometer (mass/volume) 103 mg/dL 70-110 Encounters ACCT No. Visit Date/Time Discharge Status Pt. Type Provider Facility Loc./Unit Complaint [id number] 08/24/2017 13:09:00 08/27/2017 13:15:00 DIS Inpatient ADRIANNA YEPEZ PALAK E [facility] 4TH SUICIDAL IDEATION, ALCOHOL WITHDRAWL [id number] 05/21/2013 04:05:00 05/21/2013 11:00:00 DIS Inpatient CYNTHIA BUSCH DO [facility] ICU ALCOLHOL INTOXICATION ;EXCESSIVE MEDICATION USE;QUE [id number] 05/27/2017 07:29:00 05/27/2017 11:36:00 DIS Emergency Dharmesh SMITH, [facility] W.EDS
--- OUTSIDE RECORDS SUMMARY | 2017-10-31 16:08 | XMS REPORT | Continuity of Care Document ---
Author Author [facility] Organization [facility] Address Unknown Phone Unavailable Allergies Active Description Code Type Severity Reaction Onset Reported/Identified Relationship to Patient Clinical Status Yes No Known Drug Allergies [id number] Drug Allergy Mild N/A 03/14/2009 Yes NKANo [...] BUSCH DO Ot V62.84 [facility] F10.231 ALCOHOL DEPENDENCE WITH WITHDRAWAL DELIR 08/27/2017 [facility] YEPEZ Ot F11.20 OPIOID DEPENDENCE, UNCOMPLICATED 08/27/2017 [facility] Enciso Ot F17.210 NICOTINE DEPENDENCE, CIGARETTES, UNCOMPL 08/27/2017 [facility] PAL[facility] YEPEZ Ot R45.851 SUICIDAL IDEATIONS Procedures [...] Status Pt. Type Provider Facility Loc./Unit Complaint [id number] 08/24/2017 13:09:00 08/27/2017 13:15:00 DIS Inpatient ADRIANNA YEPEZ PALAK E [facility] 4TH SUICIDAL IDEATION, ALCOHOL WITHDRAWL [id number] 05/21/2013 04:05:00 05/21/2013 11:00:00 DIS Inpatient CYNTHIA BUSCH DO [facility] ICU ALCOLHOL INTOXICATION ;EXCESSIVE MEDICATION USE;QUE [id number] 05/27/2017 07:29:00 05/27/2017 11:36:00 DIS Emergency Dharmesh SMITH, [facility] W.EDS
[2017-10-31] MEDS: ACETAMINOPHEN 325 MG TABLET/CAPLET (TYLENOL) PO PRN (21:18)
[2017-11-01] VITALS (25 sets, daily range): BP systolic 93–138; BP diastolic 6–91
[2017-11-01] MEDS: D5 1/2 NS W/KCL 20 MEQ/L 1,000 ML IV SCH ×2 (01:11→07:51)
[2017-11-01] MEDS: LORazepam 1 MG (ATIVAN) TAB PO PRN ×9 (01:51→23:47)
[2017-11-01 03:55] LABS: BASOPHILS # (AUTO) 0.2 10^3/uL (0.0-0.1); BASOPHILS % (AUTO) 1 % (0-10); EOSINOPHILS # (AUTO) 0.6 10^3/uL (0.0-0.3); EOSINOPHILS % (AUTO) 4 % (0-10); HEMATOCRIT 38 % (40-54); LYMPHOCYTES # (AUTO) 2.4 X 10^3 (1.0-4.0); LYMPHOCYTES % (AUTO) 15 % (12-44); MEAN CORPUSCULAR HEMOGLOBIN 30 PG (25-34); MEAN CORPUSCULAR HGB CONC 35 G/DL (32-36); MEAN CORPUSCULAR VOLUME 88 FL (80-99); MEAN PLATELET VOLUME 9.1 FL (7.4-10.4); MONOCYTES # (AUTO) 1.5 X 10^3 (0.0-1.0); MONOCYTES % (AUTO) 9 % (0-12); NEUTROPHILS # (AUTO) 11.5 X 10^3 (1.8-7.8); NEUTROPHILS % (AUTO) 71 % (42-75); PLATELET COUNT 323 10^3/uL (130-400); RED BLOOD COUNT 4.28 10^6/uL (4.35-5.85); RED CELL DISTRIBUTION WIDTH 13.2 % (10.0-14.5); WHITE BLOOD COUNT 16.3 10^3/uL (4.3-11.0)
[2017-11-01 04:11] LABS: BAND NEUTROPHILS 0 %; BASOPHILS % (MANUAL) 0 %; EOSINOPHILS % (MANUAL) 2 %; LYMPHOCYTES % (MANUAL) 12 %; MONOCYTES % (MANUAL) 12 %; NEUTROPHILS % (MANUAL) 68 %; RBC MORPH NORMAL; REACTIVE LYMPHOCYTES 6 %
[2017-11-01 04:29] LABS: BUN/CREATININE RATIO 8; CALCIUM 8.3 MG/DL (8.5-10.1); CARBON DIOXIDE 20 MMOL/L (21-32); CHLORIDE 106 MMOL/L (98-107); CREATININE SERUM 0.76 MG/DL (0.60-1.30); GFR ESTIMATED > 60; GLUCOSE 114 MG/DL (70-105); MAGNESIUM 1.9 MG/DL (1.8-2.4); PHOSPHORUS 2.9 MG/DL (2.3-4.7); POTASSIUM 3.8 MMOL/L (3.6-5.0); SODIUM 137 MMOL/L (135-145)
[2017-11-01] MEDS: KCL 20 MEQ TAB (K-DUR) PO SCH (05:37)
[2017-11-01] MEDS: MAGNESIUM 1 GM/100 ML IVPB 100 ML IV SCH (05:37)
[2017-11-01] MEDS ORDERED: POTASSIUM CL 10MEQ/50ML IVPB 50 ML IV SCH (06:00)
[2017-11-01] MEDS: MULTIVIT W/MINERALS TAB (THERAGRAN M) PO SCH (06:49)
[2017-11-01] MEDS: THIAMINE 100 MG (VITAMIN B-1) TAB PO SCH (06:50)
[2017-11-01] MEDS: NICOTINE 21 MG (NICODERM) PATCH TD SCH (08:44)
[2017-11-01] MEDS: FOLIC ACID 1 MG TAB PO SCH (08:44)
[2017-11-01] MEDS: MAGNESIUM OXIDE (MAG-OX)400 MG TAB PO SCH ×2 (08:44→20:15)
[2017-11-01] MEDS: NICOTINE PATCH REMOVAL TP SCH (08:44)
[2017-11-01] MEDS: ACETAMINOPHEN 325 MG TABLET/CAPLET (TYLENOL) PO PRN ×2 (12:25→18:38)
--- NOTE | 2017-11-01 12:46 | Diagnostic Imaging Report ---
INDICATION: Cough, elevated white blood cell count. COMPARISON: 10/31/2008 TECHNIQUE: Frontal and lateral radiographs of the chest dated 11/01/2017. FINDINGS: The cardiac silhouette is within normal limits. No significant pulmonary vascular congestion. Mild biapical pleural-parenchymal scarring. Mild pulmonary hyperinflation is again identified, stable from the prior examination. No focal pulmonary opacity. No pleural effusion. No pneumothorax. No acute osseous abnormality. IMPRESSION: Background changes of mild chronic obstructive pulmonary disease without superimposed acute cardiopulmonary abnormality. Dictated by: Dictated on workstation # [id number]
--- NOTE | 2017-11-01 13:31 | Progress Note (SOAP) ---
Subjective Subjective/Events-last exam Patient states that he is feeling better today. Still having thoughts of wanting to hurt himself. Tolerating PO diet. Denies any N/V overnight. Still very shaky after about 2-3 hrs after ativan is given. Review of Systems Date Seen by Provider: Nov 01, 2017 Time Seen by Provider: 10:25 General: Malaise Pulmonary: Cough Cardiovascular: No: Chest Pain, Palpitations Gastrointestinal: No: Nausea, Vomiting, Abdominal Pain, Diarrhea, Constipation Neurological: Other (+ shaking) Objective Exam Last Set of Vital Signs Vital Signs Date Time Temp Pulse Resp B/P (MAP) Pulse Ox O2 Delivery O2 Flow Rate FiO2 11/01/17 13:04 86 108/72 (84) 95 Room Air 11/01/17 12:00 16 11/01/17 11:28 97.9 10/31/17 13:00 2.00 Capillary Refill : Less Than 3 Seconds I&O Intake and Output 11/01/17 00:00 Intake Total 3800 ml Output Total 4995 ml Balance -1195 ml Intake Oral 1800 ml IV Total 2000 ml Output Urine Total 4995 ml General: Alert, Oriented X3, Cooperative, No Acute Distress HEENT: Mucous Memb Moist/Herrin Lungs: Normal Air Movement, Other (Basilar wheezing, normal work of breathing) Heart: Regular Rate, No Murmurs Abdomen: Normal Bowel Sounds, Soft, No Tenderness, No Masses Extremities: No Edema, No Tenderness/Swelling Neuro: Normal Speech, Cranial Nerves 3-12 NL Psych/Mental Status: Mental Status NL, Other (Suicidal ideation this AM) Results/Procedures Lab Laboratory Tests 11/01/17 03:25: White Blood Count 16.3H, Red Blood Count 4.28L, Hemoglobin 13.0L, Hematocrit 38L , Mean Corpuscular Volume 88, Mean Corpuscular Hemoglobin 30, Mean Corpuscular Hemoglobin Concent 35, Red Cell Distribution Width 13.2, Platelet Count 323, Mean Platelet Volume 9.1, Neutrophils (%) (Auto) 71, Lymphocytes (%) (Auto) 15, Monocytes (%) (Auto) 9, Eosinophils (%) (Auto) 4, Basophils (%) (Auto) 1, Neutrophils # (Auto) 11.5H, Lymphocytes # (Auto) 2.4, Monocytes # (Auto) 1.5H, Eosinophils # (Auto) 0.6H, Basophils # (Auto) 0.2H, Neutrophils % (Manual) 68, Lymphocytes % (Manual) 12, Monocytes % (Manual) 12, Eosinophils % (Manual) 2, Basophils % (Manual) 0, Band Neutrophils 0, Reactive Lymphocytes 6, Blood Morphology Comment NORMAL, Sodium Level 137, Potassium Level 3.8, Chloride Level 106, Carbon Dioxide Level 20L, Anion Gap 11, Blood Urea Nitrogen 6L, Creatinine 0.76, Estimat Glomerular Filtration Rate > 60, BUN/Creatinine Ratio 8 , Glucose Level 114H, Calcium Level 8.3L, Phosphorus Level 2.9, Magnesium Level 1.9 Microbiology 10/30/17 MRSA Screen - Final, Complete MRSA not isolated Assessment/Plan Assessment/Plan Plan Polysubstance abuse including benzos and EtOH EtOH 1-2 pints/day last use 2 pints 10/30 Xanax 3-4 g/day last use 10/28 Hx of DT ~8 yrs ago CIWA protocol Thiamine 100 mg qd Folic acid 1 mg qd KCl/dextrose 150 mL/h Consult psychiatry Continue ICU level of care (1) Leukocytosis Status: Acute Assessment & Plan: - No likely cause at this time - CXR today (2) COPD (chronic obstructive pulmonary disease) Status: Chronic Assessment & Plan: - CXR with findings consistent with COPD - Starting PRN treatments given cough and wheezing Qualifiers: (3) Polysubstance abuse Status: Acute (4) Suicidal ideation Status: Acute Assessment & Plan: - Needs inpatient psych admission after medically stable (5) Alcohol withdrawal Status: Acute Assessment & Plan: - Continues to require ativan every 2-3 hrs, will continue ICU admission given severity of symptoms and frequency of medication administrations Qualifiers: Qualified Codes: F10.230 - Alcohol dependence with withdrawal, uncomplicated Clinical Quality Measures DVT/VTE Risk/Contraindication: Risk Factor Score Per Nursin RFS Level Per Nursing on Admit: 2=Moderate FANY BERG MD Nov 01, 2017 13:31
[2017-11-01] MEDS ORDERED: RT-ALBUTEROL/IPRATROPIUM 3 ML (DUONEB) VIAL INH PRN (17:00)
[2017-11-01] MEDS: RT-ALBUTEROL/IPRATROPIUM 3 ML (DUONEB) VIAL INH SCH (19:03)
[2017-11-02] VITALS (15 sets, daily range): BP systolic 85–123; BP diastolic 52–97
[2017-11-02] MEDS: RT-ALBUTEROL/IPRATROPIUM 3 ML (DUONEB) VIAL INH SCH ×4 (02:46→19:39)
[2017-11-02 03:42] LABS: BASOPHILS # (AUTO) 0.2 10^3/uL (0.0-0.1); BASOPHILS % (AUTO) 3 % (0-10); EOSINOPHILS # (AUTO) 0.7 10^3/uL (0.0-0.3); EOSINOPHILS % (AUTO) 8 % (0-10); HEMATOCRIT 40 % (40-54); HEMOGLOBIN 13.8 G/DL (13.3-17.7); LYMPHOCYTES # (AUTO) 3.5 X 10^3 (1.0-4.0); LYMPHOCYTES % (AUTO) 39 % (12-44); MEAN CORPUSCULAR HEMOGLOBIN 31 PG (25-34); MEAN CORPUSCULAR HGB CONC 35 G/DL (32-36); MEAN CORPUSCULAR VOLUME 88 FL (80-99); MEAN PLATELET VOLUME 9.2 FL (7.4-10.4); MONOCYTES # (AUTO) 0.8 X 10^3 (0.0-1.0); MONOCYTES % (AUTO) 9 % (0-12); NEUTROPHILS # (AUTO) 3.6 X 10^3 (1.8-7.8); NEUTROPHILS % (AUTO) 41 % (42-75); PLATELET COUNT 316 10^3/uL (130-400); RED BLOOD COUNT 4.51 10^6/uL (4.35-5.85); RED CELL DISTRIBUTION WIDTH 13.4 % (10.0-14.5); WHITE BLOOD COUNT 8.8 10^3/uL (4.3-11.0)
[2017-11-02 04:02] LABS: BUN/CREATININE RATIO 10; CALCIUM 9.1 MG/DL (8.5-10.1); CARBON DIOXIDE 20 MMOL/L (21-32); CHLORIDE 105 MMOL/L (98-107); CREATININE SERUM 0.79 MG/DL (0.60-1.30); GFR ESTIMATED > 60; GLUCOSE 112 MG/DL (70-105); MAGNESIUM 2.1 MG/DL (1.8-2.4); PHOSPHORUS 3.8 MG/DL (2.3-4.7); POTASSIUM 3.6 MMOL/L (3.6-5.0); SODIUM 137 MMOL/L (135-145)
[2017-11-02] MEDS: MAGNESIUM 1 GM/100 ML IVPB 100 ML IV SCH (04:16)
[2017-11-02] MEDS: THIAMINE 100 MG (VITAMIN B-1) TAB PO SCH (05:48)
[2017-11-02] MEDS: LORazepam 1 MG (ATIVAN) TAB PO PRN ×6 (05:49→21:44)
[2017-11-02] MEDS: KCL 20 MEQ TAB (K-DUR) PO SCH (05:49)
[2017-11-02] MEDS: MULTIVIT W/MINERALS TAB (THERAGRAN M) PO SCH (05:49)
[2017-11-02] MEDS: NICOTINE PATCH REMOVAL TP SCH (08:06)
[2017-11-02] MEDS: FOLIC ACID 1 MG TAB PO SCH (08:06)
[2017-11-02] MEDS: NICOTINE 21 MG (NICODERM) PATCH TD SCH ×2 (08:06→20:27)
[2017-11-02] MEDS: MAGNESIUM OXIDE (MAG-OX)400 MG TAB PO SCH ×2 (08:06→19:47)
--- NOTE | 2017-11-02 15:54 | Progress Note (SOAP) ---
Subjective Subjective/Events-last exam Patient still having the shakes. Has been able to space the ativan but still requiring it every 3-5 hrs. States that he continues to have suicidal thoughts but they are not as bad as they were when he first got here. Review of Systems Date Seen by Provider: Nov 02, 2017 Time Seen by Provider: 10:15 Pulmonary: Cough Cardiovascular: No: Chest Pain, Palpitations, Edema Gastrointestinal: Nausea, No: Vomiting, Diarrhea, Constipation Objective Exam Last Set of Vital Signs Vital Signs Date Time Temp Pulse Resp B/P (MAP) Pulse Ox O2 Delivery O2 Flow Rate FiO2 11/02/17 14:48 96 Room Air 11/02/17 13:00 94 11/02/17 12:45 97.5 20 117/72 (87) 11/01/17 15:33 21 10/31/17 13:00 2.00 Capillary Refill : Less Than 3 Seconds I&O Intake and Output 11/02/17 00:00 Intake Total 4870 ml Output Total 5355 ml Balance -485 ml Intake Oral 1970 ml IV Total 2900 ml Output Urine Total 5355 ml General: Alert, Oriented X3, Cooperative, No Acute Distress HEENT: Mucous Memb Moist/Gregory Lungs: Clear to Auscultation, Normal Air Movement Heart: Regular Rate, No Murmurs Abdomen: Normal Bowel Sounds, Soft, No Tenderness, No Hepatosplenomegaly Extremities: No Edema, No Tenderness/Swelling Neuro: Normal Speech, Strength at 5/5 X4 Ext, Cranial Nerves 3-12 NL, Other (+ bilateral shaking of hands) Results/Procedures Lab Laboratory Tests 11/02/17 03:15: White Blood Count 8.8, Red Blood Count 4.51, Hemoglobin 13.8, Hematocrit 40, Mean Corpuscular Volume 88, Mean Corpuscular Hemoglobin 31, Mean Corpuscular Hemoglobin Concent 35, Red Cell Distribution Width 13.4, Platelet Count 316, Mean Platelet Volume 9.2, Neutrophils (%) (Auto) 41L, Lymphocytes (%) (Auto) 39 , Monocytes (%) (Auto) 9, Eosinophils (%) (Auto) 8, Basophils (%) (Auto) 3, Neutrophils # (Auto) 3.6, Lymphocytes # (Auto) 3.5, Monocytes # (Auto) 0.8, Eosinophils # (Auto) 0.7H, Basophils # (Auto) 0.2H, Sodium Level 137, Potassium Level 3.6, Chloride Level 105, Carbon Dioxide Level 20L, Anion Gap 12, Blood Urea Nitrogen 8, Creatinine 0.79, Estimat Glomerular Filtration Rate > 60, BUN/ Creatinine Ratio 10, Glucose Level 112H, Calcium Level 9.1, Phosphorus Level 3.8 , Magnesium Level 2.1 Microbiology 10/30/17 MRSA Screen - Final, Complete MRSA not isolated Assessment/Plan Assessment/Plan Plan Polysubstance abuse including benzos and EtOH EtOH 1-2 pints/day last use 2 pints 10/30 Xanax 3-4 g/day last use 10/28 Hx of DT ~8 yrs ago CIWA protocol Thiamine 100 mg qd Folic acid 1 mg qd KCl/dextrose 150 mL/h Consult psychiatry Continue ICU level of care (1) Alcohol withdrawal Status: Acute Assessment & Plan: - h/o withdraw seizures, Sz precautions - Banana bag given in ER, will continue thiamin and Folic acid daily - CIWS protocol, space ativan as tolerated - Will transfer to floor status Qualifiers: Qualified Codes: F10.230 - Alcohol dependence with withdrawal, uncomplicated (2) Suicidal ideation Status: Acute Assessment & Plan: - Will be evaluated for inpatient psych after medically stable, likely friday (3) Polysubstance abuse Status: Acute Assessment & Plan: - Discussed the need to refrain from using drugs (4) COPD (chronic obstructive pulmonary disease) Status: Chronic Assessment & Plan: - Continue MAT protocol Qualifiers: Clinical Quality Measures DVT/VTE Risk/Contraindication: Risk Factor Score Per Nursin RFS Level Per Nursing on Admit: 2=Moderate FANY BERG MD Nov 02, 2017 15:54
[2017-11-02] MEDS ORDERED: LORazepam 1 MG (ATIVAN) TAB PO ONE (18:15)
[2017-11-02] MEDS ORDERED: HALOPERIDOL 5 MG/ML (HALDOL) AMP IM PRN (18:30)
[2017-11-02] MEDS ORDERED: LORazepam INJ 2 MG/ML (ATIVAN) VIAL IVP PRN (18:30)
[2017-11-03] VITALS (7 sets, daily range): BP systolic 101–126; BP diastolic 55–75
[2017-11-03] MEDS: RT-ALBUTEROL/IPRATROPIUM 3 ML (DUONEB) VIAL INH SCH ×4 (02:41→22:13)
[2017-11-03] MEDS: LORazepam 1 MG (ATIVAN) TAB PO PRN ×6 (04:31→18:06)
[2017-11-03] MEDS: MULTIVIT W/MINERALS TAB (THERAGRAN M) PO SCH (05:47)
[2017-11-03 06:34] LABS: BASOPHILS # (AUTO) 0.2 10^3/uL (0.0-0.1); BASOPHILS % (AUTO) 2 % (0-10); EOSINOPHILS # (AUTO) 0.7 10^3/uL (0.0-0.3); EOSINOPHILS % (AUTO) 8 % (0-10); HEMATOCRIT 41 % (40-54); HEMOGLOBIN 14.3 G/DL (13.3-17.7); LYMPHOCYTES # (AUTO) 2.7 X 10^3 (1.0-4.0); LYMPHOCYTES % (AUTO) 29 % (12-44); MEAN CORPUSCULAR HEMOGLOBIN 31 PG (25-34); MEAN CORPUSCULAR HGB CONC 35 G/DL (32-36); MEAN CORPUSCULAR VOLUME 88 FL (80-99); MONOCYTES # (AUTO) 0.8 X 10^3 (0.0-1.0); MONOCYTES % (AUTO) 9 % (0-12); NEUTROPHILS # (AUTO) 4.9 X 10^3 (1.8-7.8); NEUTROPHILS % (AUTO) 53 % (42-75); PLATELET COUNT 335 10^3/uL (130-400); RED BLOOD COUNT 4.64 10^6/uL (4.35-5.85); RED CELL DISTRIBUTION WIDTH 13.6 % (10.0-14.5); WHITE BLOOD COUNT 9.3 10^3/uL (4.3-11.0)
[2017-11-03 06:53] LABS: ALANINE AMINOTRANSFERASE 8 U/L (0-55); ALBUMIN 3.9 GM/DL (3.2-4.5); ALKALINE PHOSPHATASE 65 U/L (40-136); BILIRUBIN,TOTAL 0.4 MG/DL (0.1-1.0); BUN/CREATININE RATIO 14; CALCIUM 9.7 MG/DL (8.5-10.1); CARBON DIOXIDE 22 MMOL/L (21-32); CHLORIDE 105 MMOL/L (98-107); CREATININE SERUM 0.79 MG/DL (0.60-1.30); GFR ESTIMATED > 60; GLUCOSE 99 MG/DL (70-105); POTASSIUM 4.4 MMOL/L (3.6-5.0); SODIUM 138 MMOL/L (135-145)
[2017-11-03] MEDS: FOLIC ACID 1 MG TAB PO SCH (09:07)
[2017-11-03] MEDS: NICOTINE 21 MG (NICODERM) PATCH TD SCH ×2 (09:07→22:57)
[2017-11-03] MEDS: NICOTINE PATCH REMOVAL TP SCH (09:07)
--- NOTE | 2017-11-03 12:12 | Progress Note (SOAP) ---
Subjective Subjective/Events-last exam Patient resting in bed and reports that he has some nausea, but at the time of exam he is eating lunch without any difficulty. He is agreeable to placement in a psychiatric facility. No acute events overnight. Review of Systems Date Seen by Provider: Nov 03, 2017 Time Seen by Provider: 12:14 General: No Chills, No Night Sweats, No Fatigue, No Malaise HEENT: No Head Aches, No Ear Pain, No Dysphasia, No Sore Throat Pulmonary: No Dyspnea, No Cough, No Pleuritic Chest Pain Cardiovascular: No: Chest Pain, Palpitations, Edema Gastrointestinal: Nausea, No: Vomiting, Abdominal Pain, Diarrhea, Constipation Genitourinary: No Dysuria, No Incontinence Musculoskeletal: No: neck pain, back pain Neurological: No: Weakness, Numbness, Incoordination, Change in speech, Confusion, Seizures Objective Exam Last Set of Vital Signs Vital Signs Date Time Temp Pulse Resp B/P (MAP) Pulse Ox O2 Delivery O2 Flow Rate FiO2 11/03/17 10:24 90 Room Air 11/03/17 07:52 98.0 94 18 118/57 (77) 11/01/17 15:33 21 10/31/17 13:00 2.00 Capillary Refill : Less Than 3 SecondsLess Than 3 Seconds I&O Intake and Output 11/03/17 00:00 Intake Total 1870 ml Output Total 625 ml Balance 1245 ml Intake Oral 1870 ml Output Urine Total 625 ml # Voids 2 Daily Weight Change Unsure General: Alert, Oriented X3, Cooperative, No Acute Distress HEENT: Atraumatic, EOMI, Mucous Memb Moist/[place] Neck: Supple, No Thyromegaly Lungs: Clear to Auscultation, Normal Air Movement Heart: Regular Rate, Normal S1, Normal S2 Abdomen: Normal Bowel Sounds, Soft, No Tenderness Extremities: No Clubbing, No Cyanosis, No Edema Skin: No Rashes, No Significant Lesion Neuro: Normal Speech, Normal Tone, Sensation Intact, Cranial Nerves 3-12 NL Psych/Mental Status: Other (remains actively suicidal with plan) Results/Procedures Lab Laboratory Tests 11/03/17 06:13: White Blood Count 9.3, Red Blood Count 4.64, Hemoglobin 14.3, Hematocrit 41, Mean Corpuscular Volume 88, Mean Corpuscular Hemoglobin 31, Mean Corpuscular Hemoglobin Concent 35, Red Cell Distribution Width 13.6, Platelet Count 335, Mean Platelet Volume 9.0, Neutrophils (%) (Auto) 53, Lymphocytes (%) (Auto) 29, Monocytes (%) (Auto) 9, Eosinophils (%) (Auto) 8, Basophils (%) (Auto) 2, Neutrophils # (Auto) 4.9, Lymphocytes # (Auto) 2.7, Monocytes # (Auto) 0.8, Eosinophils # (Auto) 0.7H, Basophils # (Auto) 0.2H, Sodium Level 138, Potassium Level 4.4, Chloride Level 105, Carbon Dioxide Level 22, Anion Gap 11, Blood Urea Nitrogen 11, Creatinine 0.79, Estimat Glomerular Filtration Rate > 60, BUN/ Creatinine Ratio 14, Glucose Level 99, Calcium Level 9.7, Total Bilirubin 0.4, Aspartate Amino Transf (AST/SGOT) 13, Alanine Aminotransferase (ALT/SGPT) 8, Alkaline Phosphatase 65, Total Protein 7.0, Albumin 3.9 Microbiology 10/30/17 MRSA Screen - Final, Complete MRSA not isolated Assessment/Plan Assessment/Plan Admission Dx Polysubstance Abuse Suicidal Ideation Plan Polysubstance abuse including benzos and EtOH EtOH 1-2 pints/day last use 2 pints 10/30 Xanax 3-4 g/day last use 10/28 Hx of DT ~8 yrs ago CIWA protocol Thiamine 100 mg qd Folic acid 1 mg qd KCl/dextrose 150 mL/h Consult psychiatry (1) Alcohol withdrawal Status: Acute Assessment & Plan: - h/o withdraw seizures, Sz precautions - Banana bag given in ER, will continue thiamin and Folic acid daily - CIWS protocol, space ativan as tolerated - Will transfer to floor status 11/03 -continue CIWA protocol -pt required 1 mg Ativan x2 doses last night and has required x3 doses this morning; when observed outside the room nursing staff reports that patient is calm and relaxed, but when they go in to do his CIWA scoring he will begin having shaking and complaining of significant nausea and be slightly confused so that he will score high enough to get ativan, as he requested to have PRN ativan per request yesterday and was told no -will schedule baclofen 10 mg TID to help with withdrawal symptoms, but patient did not appear to have any significant symptoms at the time of exam -patient medically stable and will be ready for transfer to inpatient psych for further treatment by tomorrow, which he is agreeable to Qualifiers: Qualified Codes: F10.230 - Alcohol dependence with withdrawal, uncomplicated (2) Suicidal ideation Status: Acute Assessment & Plan: - Will be evaluated for inpatient psych after medically stable, likely friday 11/03 -remains actively suicidal with plan to hang himself -medically stabilized and able to be transferred to inpatient psychiatric care when accepted (3) Polysubstance abuse Status: Acute Assessment & Plan: - Discussed the need to refrain from using drugs (4) COPD (chronic obstructive pulmonary disease) Status: Chronic Assessment & Plan: - Continue MAT protocol Qualifiers: Clinical Quality Measures DVT/VTE Risk/Contraindication: Risk Factor Score Per Nursin RFS Level Per Nursing on Admit: 2=Moderate PALAK RODAS DO Nov 03, 2017 12:12
[2017-11-03] MEDS: BACLOFEN 10 MG (LIORESAL) TAB PO SCH ×2 (14:09→20:09)
[2017-11-03] MEDS: HALOPERIDOL 5 MG/ML (HALDOL) AMP IV PRN (22:18)
[2017-11-03] MEDS ORDERED: LORazepam INJ 2 MG/ML (ATIVAN) VIAL IVP ONE ×2 (23:00→23:15)
[2017-11-03] MEDS ORDERED: HALOPERIDOL 5 MG/ML (HALDOL) AMP IM/IV ONE (23:00)
[2017-11-04 01:28] VITALS: BP 126/70
[2017-11-04 03:24] VITALS: BP 105/67
[2017-11-04] MEDS: MULTIVIT W/MINERALS TAB (THERAGRAN M) PO SCH (07:15)
[2017-11-04] MEDS: BACLOFEN 10 MG (LIORESAL) TAB PO SCH ×3 (07:23→21:40)
[2017-11-04] MEDS: LORazepam 1 MG (ATIVAN) TAB PO PRN ×3 (07:23→15:22)
[2017-11-04] MEDS: FOLIC ACID 1 MG TAB PO SCH (07:23)
[2017-11-04] MEDS: RT-ALBUTEROL/IPRATROPIUM 3 ML (DUONEB) VIAL INH SCH ×2 (07:55→19:13)
[2017-11-04 08:00] VITALS: BP 111/69
[2017-11-04] MEDS: NICOTINE PATCH REMOVAL TP SCH (10:39)
[2017-11-04 11:38] VITALS: BP 100/63
[2017-11-04] MEDS: ACETAMINOPHEN 325 MG TABLET/CAPLET (TYLENOL) PO PRN (15:24)
[2017-11-04 16:00] VITALS: BP 116/81
[2017-11-04 20:00] VITALS: BP 110/73
--- NOTE | 2017-11-04 21:07 | Progress Note (SOAP) ---
Subjective Subjective/Events-last exam Overnight last night the patient became extremely agitated. He requested PRN ativan, and when he was told that he could not have that, patient attempted to leave the room and get on the elevator. He shouted at the nurse, wanting to know if it was "against her worship" to give him ativan. He was given 5 mg Haldol, but remained extremely agitated and attempting to leave the floor. Police were called and the nursing supervisor shop was also called. The patient was given an additional 5 mg of Haldol, which did finally help to calm him down. This evening the patient is noted to be pacing around, attempting to leave his room. When directed back into his room, he demands ativan. Patient was informed by this provider that we were not giving him ativan at his request. He immediately became angry, leaning forward in the chair, raising his voice and asking if it "was against your worship". Then patient wanted to know why this provider was there, and why provider "came into the room with judgement and opinions". When asked why he wanted ativan, patient replied that he was "withdrawing from drugs and alcohol and he felt bad". When he was told that we were happy to give him medication to help make him comfortable but we would not give him ativan, patient began to sob. He reports that he is just so sad since his daughter and he misses her so much. He has messed up his life and he has no reason to live and he wishes that he was . He would be better off , and he just wants to . Review of Systems Date Seen by Provider: Nov 04, 2017 Time Seen by Provider: 20:45 General: No Night Sweats, No Fatigue HEENT: No Head Aches, No Eye Pain, No Dysphasia Pulmonary: No Dyspnea, No Pleuritic Chest Pain Cardiovascular: No: Chest Pain, Palpitations, Edema Gastrointestinal: No: Vomiting, Abdominal Pain Genitourinary: No Incontinence, No Hematuria Musculoskeletal: No: neck pain, back pain Neurological: No: Numbness, Incoordination, Change in speech, Confusion, Seizures Objective Exam Last Set of Vital Signs Vital Signs Date Time Temp Pulse Resp B/P (MAP) Pulse Ox O2 Delivery O2 Flow Rate FiO2 11/04/17 20:00 98.9 104 16 110/73 (85) 94 Room Air 11/04/17 01:28 21 10/31/17 13:00 2.00 Capillary Refill : Less Than 3 SecondsLess Than 3 Seconds I&O Intake and Output 11/04/17 00:00 Intake Total 1611 ml Balance 1611 ml Intake Oral 1611 ml # Voids 11 General: Alert, Oriented X3, Moderate Distress, Other HEENT: Atraumatic, EOMI, Mucous Memb Moist/[place] Neck: Supple, No JVD, No Thyromegaly Lungs: Clear to Auscultation, Normal Air Movement Heart: Regular Rate, Normal S1, Normal S2 Abdomen: Normal Bowel Sounds, Soft, No Tenderness, No Hepatosplenomegaly Extremities: No Clubbing, No Cyanosis, No Edema Skin: No Rashes, No Significant Lesion Neuro: Normal Gait, Normal Speech, Normal Tone, Sensation Intact, Cranial Nerves 3-12 NL, Other (agitated, then hysterically crying) Psych/Mental Status: Other (extremely depressed and actively suicidal) Results/Procedures Lab Microbiology 10/30/17 MRSA Screen - Final, Complete MRSA not isolated Assessment/Plan Assessment/Plan Plan Polysubstance abuse including benzos and EtOH EtOH 1-2 pints/day last use 2 pints 10/30 Xanax 3-4 g/day last use 10/28 Hx of DT ~8 yrs ago CIWA protocol Thiamine 100 mg qd Folic acid 1 mg qd KCl/dextrose 150 mL/h Consult psychiatry (1) Alcohol withdrawal Status: Acute Assessment & Plan: - h/o withdraw seizures, Sz precautions - Banana bag given in ER, will continue thiamin and Folic acid daily - CIWS protocol, space ativan as tolerated - Will transfer to floor status 11/03 -continue CIWA protocol -pt required 1 mg Ativan x2 doses last night and has required x3 doses this morning; when observed outside the room nursing staff reports that patient is calm and relaxed, but when they go in to do his CIWA scoring he will begin having shaking and complaining of significant nausea and be slightly confused so that he will score high enough to get ativan, as he requested to have PRN ativan per request yesterday and was told no -will schedule baclofen 10 mg TID to help with withdrawal symptoms, but patient did not appear to have any significant symptoms at the time of exam -patient medically stable and will be ready for transfer to inpatient psych for further treatment by tomorrow, which he is agreeable to 11/04 -patient continues to await available psych bed, unable to be transferred today due to weather and poor road conditions -patient is outside the dangerous window for withdrawal seizures and when observed has not been tremulous, has been eating well, but continues to try and get ativan either by request or with behaviors to increase CIWA score so he will get a dose -will discontinue ativan at this time -pt has history of withdrawal seizures, but has only required 4 doses in the last 24 hours, and all were obtained after patient was observed to be resting comfortably, requested to be given ativan and reminded that he was not being given the medication based on request, and then CIWA scoring done and patient with exaggerated behaviors in order to elevate his score in order to qualify for ativan -PRN haldol, scheduled baclofen, pt currently extremely anxious and upset, crying hysterically and extremely depressed - 20 mg ziprasidone IM x1 given -patient medically stable and ready for transfer to inpatient facility when accepted and transport can be arranged Qualifiers: Qualified Codes: F10.230 - Alcohol dependence with withdrawal, uncomplicated (2) Suicidal ideation Status: Acute Assessment & Plan: - Will be evaluated for inpatient psych after medically stable, likely friday 11/03 -remains actively suicidal with plan to hang himself -medically stabilized and able to be transferred to inpatient psychiatric care when accepted 11/04 -patient remains actively suicidal with plan -medically stable and ready for transfer to inpatient psychiatric facility as soon as accepted (3) Polysubstance abuse Status: Acute Assessment & Plan: - Discussed the need to refrain from using drugs 11/04 -discussed with patient that ativan was similar to the xanax that he had been abusing and while we were happy to medicate him to help with his symptoms, we would not be giving him ativan as he continues to display drug seeking behavior and that was not healthy for him -pt verbalized understanding but "thinks the ativan just works really well for him, although he does need a couple pills to really do the trick". explained that statements like that was precisely why we did not want to continue giving him ativan if at all possible (4) COPD (chronic obstructive pulmonary disease) Status: Chronic Assessment & Plan: - Continue MAT protocol Qualifiers: Clinical Quality Measures DVT/VTE Risk/Contraindication: Risk Factor Score Per Nursin RFS Level Per Nursing on Admit: 2=Moderate PALAK RODAS DO Nov 04, 2017 21:07
[2017-11-04] MEDS ORDERED: ZIPRASIDONE 20 MG INJ (GEODON) VIAL IM ONE (21:15)
[2017-11-05] VITALS: BP 103/56
[2017-11-05] MEDS ORDERED: clonazePAM 1 MG (KlonoPIN) TAB PO ONE
[2017-11-05] MEDS: HALOPERIDOL 5 MG/ML (HALDOL) AMP IV PRN ×2 (00:03→09:40)
[2017-11-05 04:00] VITALS: BP 98/55
[2017-11-05] MEDS: MULTIVIT W/MINERALS TAB (THERAGRAN M) PO SCH ×2 (05:37→05:38)
[2017-11-05 08:00] VITALS: BP 104/67
[2017-11-05] MEDS: RT-ALBUTEROL/IPRATROPIUM 3 ML (DUONEB) VIAL INH SCH ×2 (08:00→19:33)
[2017-11-05] MEDS: NICOTINE 21 MG (NICODERM) PATCH TD SCH (09:48)
[2017-11-05] MEDS: NICOTINE PATCH REMOVAL TP SCH (09:48)
[2017-11-05] MEDS: BACLOFEN 10 MG (LIORESAL) TAB PO SCH ×3 (09:50→20:45)
[2017-11-05] MEDS: FOLIC ACID 1 MG TAB PO SCH (09:50)
--- NOTE | 2017-11-05 12:41 | Progress Note (SOAP) ---
Subjective Subjective/Events-last exam Medically stable. Complaint today is of depressions. States he has been "all the antidepressants" and none of them work. States he has been on Abilify. Per his clinic chart pt was most recently on Cymbalta 60mg, Abilify was added as an adjunct however patient did not start it due to cost. Review of Systems Date Seen by Provider: Nov 05, 2017 Time Seen by Provider: 09:45 Objective Exam Last Set of Vital Signs Vital Signs Date Time Temp Pulse Resp B/P (MAP) Pulse Ox O2 Delivery O2 Flow Rate FiO2 11/05/17 08:00 97.7 85 18 104/67 (79) 96 Room Air 11/04/17 01:28 21 10/31/17 13:00 2.00 Capillary Refill : Less Than 3 SecondsLess Than 3 Seconds I&O Intake and Output 11/05/17 00:00 Intake Total 3390 ml Balance 3390 ml Intake Oral 3390 ml # Voids 16 # Bowel Movements 3 General: Alert, Oriented X3, Cooperative Neuro: Normal Speech, Other (no tremor) Psych/Mental Status: Other (depressed mood) Results/Procedures Lab Microbiology 10/30/17 MRSA Screen - Final, Complete MRSA not isolated Assessment/Plan Assessment/Plan Plan Polysubstance abuse including benzos and EtOH EtOH 1-2 pints/day last use 2 pints 10/30 Xanax 3-4 g/day last use 10/28 Hx of DT ~8 yrs ago CIWA protocol Thiamine 100 mg qd Folic acid 1 mg qd KCl/dextrose 150 mL/h Consult psychiatry (1) Alcohol withdrawal Status: Acute Assessment & Plan: - h/o withdraw seizures, Sz precautions - Banana bag given in ER, will continue thiamin and Folic acid daily - CIWS protocol, space ativan as tolerated - Will transfer to floor status 11/03 -continue CIWA protocol -pt required 1 mg Ativan x2 doses last night and has required x3 doses this morning; when observed outside the room nursing staff reports that patient is calm and relaxed, but when they go in to do his CIWA scoring he will begin having shaking and complaining of significant nausea and be slightly confused so that he will score high enough to get ativan, as he requested to have PRN ativan per request yesterday and was told no -will schedule baclofen 10 mg TID to help with withdrawal symptoms, but patient did not appear to have any significant symptoms at the time of exam -patient medically stable and will be ready for transfer to inpatient psych for further treatment by tomorrow, which he is agreeable to 11/04 -patient continues to await available psych bed, unable to be transferred today due to weather and poor road conditions -patient is outside the dangerous window for withdrawal seizures and when observed has not been tremulous, has been eating well, but continues to try and get ativan either by request or with behaviors to increase CIWA score so he will get a dose -will discontinue ativan at this time -pt has history of withdrawal seizures, but has only required 4 doses in the last 24 hours, and all were obtained after patient was observed to be resting comfortably, requested to be given ativan and reminded that he was not being given the medication based on request, and then CIWA scoring done and patient with exaggerated behaviors in order to elevate his score in order to qualify for ativan -PRN haldol, scheduled baclofen, pt currently extremely anxious and upset, crying hysterically and extremely depressed - 20 mg ziprasidone IM x1 given -patient medically stable and ready for transfer to inpatient facility when accepted and transport can be arranged RESOLVED Qualifiers: Qualified Codes: F10.230 - Alcohol dependence with withdrawal, uncomplicated (2) Suicidal ideation Status: Acute Assessment & Plan: - Will be evaluated for inpatient psych after medically stable, likely friday 11/03 -remains actively suicidal with plan to hang himself -medically stabilized and able to be transferred to inpatient psychiatric care when accepted 11/04 -patient remains actively suicidal with plan -medically stable and ready for transfer to inpatient psychiatric facility as soon as accepted 11/05 - continues to be medically stable; SW working on placement. [facility] (3) Polysubstance abuse Status: Acute Assessment & Plan: - Discussed the need to refrain from using drugs 11/04 -discussed with patient that ativan was similar to the xanax that he had been abusing and while we were happy to medicate him to help with his symptoms, we would not be giving him ativan as he continues to display drug seeking behavior and that was not healthy for him -pt verbalized understanding but "thinks the ativan just works really well for him, although he does need a couple pills to really do the trick". explained that statements like that was precisely why we did not want to continue giving him ativan if at all possible (4) COPD (chronic obstructive pulmonary disease) Status: Chronic Assessment & Plan: - Continue MAT protocol Qualifiers: (5) Depression Status: Chronic Assessment & Plan: 11/05/16 - Will restart Cymbalta 60mg and add Abilify 2mg as adjunctive treatment. Patient assistance available for ongoing prescription as OP. LBeanDO Qualifiers: Qualified Codes: F33.1 - Major depressive disorder, recurrent, moderate Clinical Quality Measures DVT/VTE Risk/Contraindication: Risk Factor Score Per Nursin RFS Level Per Nursing on Admit: 2=Moderate RAH SANTAMARIA DO Nov 05, 2017 12:41
[2017-11-05] MEDS: hydrOXYzine (VISTARIL) 25 MG CAP PO PRN (13:40)
[2017-11-05] MEDS: ARIPIPRAZOLE 2 MG (ABILIFY) TAB PO SCH (13:41)
[2017-11-05] MEDS: DULoxetine 30 MG (CYMBALTA) CAP PO SCH (13:41)
[2017-11-05] MEDS ORDERED: clonazePAM 1 MG (KlonoPIN) TAB PO NR (15:45)
[2017-11-05 16:00] VITALS: BP 115/72
[2017-11-06] VITALS: BP 115/61
[2017-11-06] MEDS: MULTIVIT W/MINERALS TAB (THERAGRAN M) PO SCH (06:04)
[2017-11-06 08:00] VITALS: BP 103/63
[2017-11-06] MEDS: FOLIC ACID 1 MG TAB PO SCH (08:09)
[2017-11-06] MEDS: ARIPIPRAZOLE 2 MG (ABILIFY) TAB PO SCH (08:09)
[2017-11-06] MEDS: NICOTINE 21 MG (NICODERM) PATCH TD SCH (08:09)
[2017-11-06] MEDS: NICOTINE PATCH REMOVAL TP SCH (08:09)
[2017-11-06] MEDS: BACLOFEN 10 MG (LIORESAL) TAB PO SCH ×3 (08:09→20:08)
[2017-11-06] MEDS: DULoxetine 30 MG (CYMBALTA) CAP PO SCH (08:09)
[2017-11-06] MEDS: RT-ALBUTEROL/IPRATROPIUM 3 ML (DUONEB) VIAL INH SCH ×2 (08:58→20:43)
[2017-11-06] MEDS: hydrOXYzine (VISTARIL) 25 MG CAP PO PRN (14:19)
[2017-11-06] MEDS ORDERED: DULO30CA3 PO (15:31)
[2017-11-06] MEDS ORDERED: ARIP2TAB3 PO (15:31)
--- NOTE | 2017-11-06 15:40 | Progress Note (SOAP) ---
Subjective Subjective/Events-last exam Patient feeling somewhat better today. States he no longer feels suicidal. Review of Systems Date Seen by Provider: Nov 06, 2017 Time Seen by Provider: 09:15 Objective Exam Last Set of Vital Signs Vital Signs Date Time Temp Pulse Resp B/P (MAP) Pulse Ox O2 Delivery O2 Flow Rate FiO2 11/06/17 08:58 93 Room Air 11/06/17 08:00 97.6 77 20 103/63 (76) 11/04/17 01:28 21 10/31/17 13:00 2.00 Capillary Refill : Less Than 3 SecondsLess Than 3 Seconds I&O Intake and Output 11/06/17 00:00 Intake Total 1382 ml Balance 1382 ml Intake Oral 1382 ml # Voids 13 # Bowel Movements 1 General: Alert, Oriented X3, Cooperative Psych/Mental Status: Mood NL Results/Procedures Lab Microbiology 10/30/17 MRSA Screen - Final, Complete MRSA not isolated Assessment/Plan Assessment/Plan Plan Polysubstance abuse including benzos and EtOH EtOH 1-2 pints/day last use 2 pints 10/30 Xanax 3-4 g/day last use 10/28 Hx of DT ~8 yrs ago CIWA protocol Thiamine 100 mg qd Folic acid 1 mg qd KCl/dextrose 150 mL/h Consult psychiatry (1) Alcohol withdrawal Status: Acute Assessment & Plan: - h/o withdraw seizures, Sz precautions - Banana bag given in ER, will continue thiamin and Folic acid daily - CIWS protocol, space ativan as tolerated - Will transfer to floor status 11/03 -continue CIWA protocol -pt required 1 mg Ativan x2 doses last night and has required x3 doses this morning; when observed outside the room nursing staff reports that patient is calm and relaxed, but when they go in to do his CIWA scoring he will begin having shaking and complaining of significant nausea and be slightly confused so that he will score high enough to get ativan, as he requested to have PRN ativan per request yesterday and was told no -will schedule baclofen 10 mg TID to help with withdrawal symptoms, but patient did not appear to have any significant symptoms at the time of exam -patient medically stable and will be ready for transfer to inpatient psych for further treatment by tomorrow, which he is agreeable to 11/04 -patient continues to await available psych bed, unable to be transferred today due to weather and poor road conditions -patient is outside the dangerous window for withdrawal seizures and when observed has not been tremulous, has been eating well, but continues to try and get ativan either by request or with behaviors to increase CIWA score so he will get a dose -will discontinue ativan at this time -pt has history of withdrawal seizures, but has only required 4 doses in the last 24 hours, and all were obtained after patient was observed to be resting comfortably, requested to be given ativan and reminded that he was not being given the medication based on request, and then CIWA scoring done and patient with exaggerated behaviors in order to elevate his score in order to qualify for ativan -PRN haldol, scheduled baclofen, pt currently extremely anxious and upset, crying hysterically and extremely depressed - 20 mg ziprasidone IM x1 given -patient medically stable and ready for transfer to inpatient facility when accepted and transport can be arranged RESOLVED Qualifiers: Qualified Codes: F10.230 - Alcohol dependence with withdrawal, uncomplicated (2) Suicidal ideation Status: Acute Assessment & Plan: - Will be evaluated for inpatient psych after medically stable, likely friday 11/03 -remains actively suicidal with plan to hang himself -medically stabilized and able to be transferred to inpatient psychiatric care when accepted 11/04 -patient remains actively suicidal with plan -medically stable and ready for transfer to inpatient psychiatric facility as soon as accepted 11/05 - continues to be medically stable; SW working on placement. Andrea 11/06 - Improved today. Patient willing to go to [facility] for treatment. (3) Polysubstance abuse Status: Acute Assessment & Plan: - Discussed the need to refrain from using drugs 11/04 -discussed with patient that ativan was similar to the xanax that he had been abusing and while we were happy to medicate him to help with his symptoms, we would not be giving him ativan as he continues to display drug seeking behavior and that was not healthy for him -pt verbalized understanding but "thinks the ativan just works really well for him, although he does need a couple pills to really do the trick". explained that statements like that was precisely why we did not want to continue giving him ativan if at all possible (4) COPD (chronic obstructive pulmonary disease) Status: Chronic Assessment & Plan: - Continue MAT protocol Qualifiers: (5) Depression Status: Chronic Assessment & Plan: 11/05/16 - Will restart Cymbalta 60mg and add Abilify 2mg as adjunctive treatment. Patient assistance available for ongoing prescription as OP. Andrea 11/06 - will continue same Qualifiers: Qualified Codes: F33.1 - Major depressive disorder, recurrent, moderate Clinical Quality Measures DVT/VTE Risk/Contraindication: Risk Factor Score Per Nursin RFS Level Per Nursing on Admit: 2=Moderate RAH SANTAMARIA DO Nov 06, 2017 15:40
--- NOTE | 2017-11-06 15:44 | Discharge Summary ---
Diagnosis/Chief Complaint Date of Admission Oct 30, 2017 at 21:35 Date of Discharge 11/07/17 Admission Diagnosis Admission Diagnosis (1) Alcohol withdrawal Status: Acute Qualifiers: Qualified Codes: F10.230 - Alcohol dependence with withdrawal, uncomplicated (2) Suicidal ideation Status: Acute (3) Polysubstance abuse Status: Acute Discharge Diagnosis (1) Alcohol withdrawal Status: Acute Assessment & Plan: - h/o withdraw seizures, Sz precautions - Banana bag given in ER, will continue thiamin and Folic acid daily - CIWS protocol, space ativan as tolerated - Will transfer to floor status 11/03 -continue CIWA protocol -pt required 1 mg Ativan x2 doses last night and has required x3 doses this morning; when observed outside the room nursing staff reports that patient is calm and relaxed, but when they go in to do his CIWA scoring he will begin having shaking and complaining of significant nausea and be slightly confused so that he will score high enough to get ativan, as he requested to have PRN ativan per request yesterday and was told no -will schedule baclofen 10 mg TID to help with withdrawal symptoms, but patient did not appear to have any significant symptoms at the time of exam -patient medically stable and will be ready for transfer to inpatient psych for further treatment by tomorrow, which he is agreeable to 11/04 -patient continues to await available psych bed, unable to be transferred today due to weather and poor road conditions -patient is outside the dangerous window for withdrawal seizures and when observed has not been tremulous, has been eating well, but continues to try and get ativan either by request or with behaviors to increase CIWA score so he will get a dose -will discontinue ativan at this time -pt has history of withdrawal seizures, but has only required 4 doses in the last 24 hours, and all were obtained after patient was observed to be resting comfortably, requested to be given ativan and reminded that he was not being given the medication based on request, and then CIWA scoring done and patient with exaggerated behaviors in order to elevate his score in order to qualify for ativan -PRN haldol, scheduled baclofen, pt currently extremely anxious and upset, crying hysterically and extremely depressed - 20 mg ziprasidone IM x1 given -patient medically stable and ready for transfer to inpatient facility when accepted and transport can be arranged RESOLVED Qualifiers: Qualified Codes: F10.230 - Alcohol dependence with withdrawal, uncomplicated (2) Suicidal ideation Status: Acute Assessment & Plan: - Will be evaluated for inpatient psych after medically stable, likely friday 11/03 -remains actively suicidal with plan to hang himself -medically stabilized and able to be transferred to inpatient psychiatric care when accepted 11/04 -patient remains actively suicidal with plan -medically stable and ready for transfer to inpatient psychiatric facility as soon as accepted 11/05 - continues to be medically stable; SW working on placement. LBeanDO 11/06 - Improved today. Patient willing to go to [facility] for treatment. (3) Polysubstance abuse Status: Acute Assessment & Plan: - Discussed the need to refrain from using drugs 11/04 -discussed with patient that ativan was similar to the xanax that he had been abusing and while we were happy to medicate him to help with his symptoms, we would not be giving him ativan as he continues to display drug seeking behavior and that was not healthy for him -pt verbalized understanding but "thinks the ativan just works really well for him, although he does need a couple pills to really do the trick". explained that statements like that was precisely why we did not want to continue giving him ativan if at all possible (4) COPD (chronic obstructive pulmonary disease) Status: Chronic Assessment & Plan: - Continue MAT protocol Qualifiers: (5) Depression Status: Chronic Assessment & Plan: 11/05/16 - Will restart Cymbalta 60mg and add Abilify 2mg as adjunctive treatment. Patient assistance available for ongoing prescription as OP. LBrenénDO 11/06 - will continue same Qualifiers: Qualified Codes: F33.1 - Major depressive disorder, recurrent, moderate PLAN: anticipate DC 11/07/17 to [facility] Chief Complaint/HPI Chief Complaint/HPI Continues to have a plan and suicidal ideation this AM. Having significant shaking and nausea this AM. Discharge Summary-Simple/Stand Consultations Discharge Physical Examination Allergies: Coded Allergies: NKANo Known Allergies (Unverified Allergy, Mild, 03/28/09) No Known Drug Allergies (Unverified , 03/14/09) Vitals & I&Os Vital Sign - Last 12Hours Date Time Temp Pulse Resp B/P (MAP) Pulse Ox O2 Delivery O2 Flow Rate FiO2 11/06/17 08:58 93 Room Air 11/06/17 08:00 97.6 77 20 103/63 (76) 11/04/17 01:28 21 10/31/17 13:00 2.00 Intake and Output 11/06/17 00:00 Intake Total 1160 ml Balance 1160 ml Hospital Course See final discharge diagnosis. Discharge Instructions to patient/family Please see electronic discharge instructions given to patient. Discharge Medications Reviewed and agree with Discharge Medication list on patient's Discharge Instruction sheet Clinical Quality Measures DVT/VTE Risk/Contraindication: Risk Factor Score Per Nursin RFS Level Per Nursing on Admit: 2=Moderate RAH SANTAMARIA DO Nov 06, 2017 15:44
[2017-11-06 16:00] VITALS: BP 114/55
[2017-11-06] MEDS: HALOPERIDOL 5 MG/ML (HALDOL) AMP IV PRN (20:08)
[2017-11-06] MEDS ORDERED: hydrOXYzine (VISTARIL) 25 MG CAP PO ONE (22:00)
[2017-11-06 23:03] VITALS: BP 134/77
[2017-11-07] MEDS: MULTIVIT W/MINERALS TAB (THERAGRAN M) PO SCH (06:20)
--- NOTE | 2017-11-07 06:45 | Discharge Instructions ---
RAH SANTAMARIA DO 11/06/17 1534: Discharge [facility] Discharge Medications New, Converted or Re-Newed RX: Transmitted to Pharmacy ([facility]) New Medications: Duloxetine HCl (Cymbalta) 30 Mg Capsule.dr 60 MG PO DAILY, #30 CAP 0 Refills continue home med Continued Medications: Aripiprazole (Abilify) 2 Mg Tablet 2 MG PO DAILY, #30 TAB 0 Refills (This prescription has been renewed) Hydroxyzine HCl (Hydroxyzine HCl) 50 Mg Tablet 50 MG PO TID PRN for ANXIETY, TAB Patient Instructions Goal/Follow Up Appt: Follow-up with Leif Christensen APRN at [facility] following [facility] treatment Activity & Diet Discharge Diet: No Restrictions Copy Copies To 1: [facility]/PALAK CATHERINE DO 11/07/17 0644: Discharge [facility] Discharge Medications New Medications: Duloxetine HCl (Cymbalta) 30 Mg Capsule.dr 60 MG PO DAILY, #30 CAP 0 Refills continue home med Continued Medications: Aripiprazole (Abilify) 2 Mg Tablet 2 MG PO DAILY, #30 TAB 0 Refills (This prescription has been renewed) Hydroxyzine HCl (Hydroxyzine HCl) 50 Mg Tablet 50 MG PO TID PRN for ANXIETY, TAB Copy Copies To 1: [facility]/RAH [place] DO Nov 06, 2017 15:34 PALAK RODAS DO Nov 07, 2017 06:44
[2017-11-07] MEDS: RT-ALBUTEROL/IPRATROPIUM 3 ML (DUONEB) VIAL INH SCH (07:00)
[2017-11-07 08:00] VITALS: BP 106/71
[2017-11-07] MEDS: BACLOFEN 10 MG (LIORESAL) TAB PO SCH (09:17)
[2017-11-07] MEDS: ARIPIPRAZOLE 2 MG (ABILIFY) TAB PO SCH (09:18)
[2017-11-07] MEDS: NICOTINE PATCH REMOVAL TP SCH (09:18)
[2017-11-07] MEDS: DULoxetine 30 MG (CYMBALTA) CAP PO SCH (09:18)
[2017-11-07] MEDS: NICOTINE 21 MG (NICODERM) PATCH TD SCH (09:18)
[2017-11-07] MEDS: FOLIC ACID 1 MG TAB PO SCH (09:18)
== END 2017-11-07 12:25 | DRG 897 ==
LOC: EDUNIT# 18:59 → ER 19:01 → ICU 21:35 → 4TH 11-02 13:25
PROVIDERS: ADMIT Family Medicine; ATTEND Family Medicine
DX: F10.230 Alcohol dependence with withdrawal, uncomplicated (principal); R45.851 Suicidal ideations; F19.10 Other psychoactive substance abuse, uncomplicated; Z87.891 Personal history of nicotine dependence; F33.1 Major depressive disorder, recurrent, moderate; D72.829 Elevated white blood cell count, unspecified; J44.9 Chronic obstructive pulmonary disease, unspecified
CPT/HCPCS: 36415; 71046; 80048; 80053; 80306; 80320; 80329; 81000; 83690; 83735; 84100; 85007; 85025; 85027; 87081; 93005; 94640; 94760; 96361; 96374

== ENCOUNTER → 2020-06-01 | Outpatient (CLI) | payer BC ==
[~2020-06-01] MED LIST changes: +ARIP2TAB3 PO; +CATHETER FLUSH 10 ML SYR IV PRN; +HOLD METFORMIN - RECEIVED CONTRAST 20 ML VIAL IV SCH; +HYDR50TA76 PO; +IOHEXOL 350 MG/ML 100 ML (OMNIPAQUE 350) VIAL IV ONE; +NS 100 ML (IVPB) BAG IV ONE
[2020-06-01 11:06] LABS: BUN/CREATININE RATIO 23; CREATININE SERUM 0.79 MG/DL (0.60-1.30); GFR ESTIMATED > 60
--- NOTE | 2020-06-01 12:41 | Diagnostic Imaging Report ---
PROCEDURE: CT neck soft tissue with contrast. TECHNIQUE: Multiple contiguous axial images were obtained through the neck after the administration of contrast. Auto Exposure Controls were utilized during the CT exam to meet ALARA standards for radiation dose reduction. INDICATION: Left-sided neck mass. No prior studies are available for comparison. There is a neck solid and cystic mass involving the superficial lobe of the left parotid gland measuring 3.8 cm AP by 3.4 cm transverse by 3.7 cm cephalocaudal. This is fairly well demarcated and does show some internal cystic components, largest cyst measuring 16 mm in size. No associated calcifications are seen. The right parotid gland is unremarkable. Bilateral submandibular glands are unremarkable. No definite cervical lymphadenopathy is seen. There are no thyroid masses. The posterior nasopharynx and oropharynx are unremarkable. Epiglottis and larynx are unremarkable. Upper lung dejesus demonstrates centrilobular emphysematous changes. IMPRESSION: Lobulated, mixed solid and cystic mass centered within the superficial lobe in the left parotid gland. 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 Other etiologies cannot be entirely excluded such as pleomorphic adenoma or other parotid tumors. The remainder of the study is unremarkable. Dictated by: Dictated on workstation # [id number]
== END ==
LOC: RAD 11:45
PROVIDERS: ATTEND Surgery
DX: K11.8 Other diseases of salivary glands (principal); R22.1 Localized swelling, mass and lump, neck
CPT/HCPCS: 36415; 70491; 82565; 84520

== ENCOUNTER → 2021-08-22 | Outpatient (CLI) | payer BC ==
[~2021-08-22] MED LIST changes: -CATHETER FLUSH 10 ML SYR IV PRN; -HOLD METFORMIN - RECEIVED CONTRAST 20 ML VIAL IV SCH; -IOHEXOL 350 MG/ML 100 ML (OMNIPAQUE 350) VIAL IV ONE; -NS 100 ML (IVPB) BAG IV ONE
--- NOTE | 2021-08-22 13:19 | Diagnostic Imaging Report ---
INDICATION: Low back pain. TIME OF EXAM: 12:24 p.m. FINDINGS: Three views of the lumbar spine were obtained. Curvature and alignment is normal. Vertebral body heights and disc spaces are well maintained. No fracture or subluxation is identified. There are some mild atherosclerotic calcifications in the abdominal aorta. IMPRESSION: No acute bony abnormality is detected. Dictated by: Dictated on workstation # [id number]
== END ==
LOC: RAD 12:04
PROVIDERS: ATTEND Family Medicine
DX: M54.41 Lumbago with sciatica, right side (principal)
CPT/HCPCS: 72100

== ENCOUNTER → 2021-10-25 | Outpatient (CLI) | payer BC ==
--- NOTE | 2021-10-25 17:00 | Diagnostic Imaging Report ---
INDICATION: Right elbow pain. COMPARISON: None available. TECHNIQUE: Three radiographs of the right elbow dated October 25, 2021. FINDINGS: No acute fracture or dislocation. No destructive osseous process. No elbow joint effusion. No suspicious radiopaque foreign body. IMPRESSION: No acute osseous abnormality. Dictated by: Dictated on workstation # [id number]
== END ==
LOC: RAD 15:43
PROVIDERS: ATTEND Family Medicine
DX: M25.521 Pain in right elbow (principal)
CPT/HCPCS: 73080